=== PATIENT | male | born 1940 | race Caucasian/White ===

== ENCOUNTER 2018-12-24 07:47 | Inpatient (IN) | payer MEDICARE, OTHER ==
[~2018-12-24] VITALS: Ht 182.9 cm; Wt 88.9 kg
[~2018-12-24 07:47] MED LIST: ASA81 MG; [UNRECOGNIZED DRUG - OTHER]
--- OUTSIDE RECORDS SUMMARY | 2018-12-24 07:53 | XMS REPORT | Clinical Summary ---
Author Author KRIS [facility] Address Unknown Phone Unavailable Care Team Providers Care Chiropractic Neurologist Name Role Phone Chirag Gary Beck PCP Allergies Comments Active Allergy Reactions Severity Noted Date Chlorpheniramine-Acetamin Rash Low 08/21/2016 ophen Penicillins Rash Low 05/17/2015 Medications End Date Status Medication Sig Dispensed Refills Start Date Active atorvastatin (LIPITOR) 10 Take 10 mg by 0 MG tablet mouth nightly . Active aspirin 81 MG EC tablet Take 81 mg by 0 mouth daily. Active ranitidine (ZANTAC) 150 Take 150 mg 0 MG tablet by mouth 2 (two) times daily. Active glimepiride (AMARYL) 2 MG Take 2 mg by 0 tablet mouth every morning before breakfast. Active herbal drugs (COLON Take by 0 HERBAL CLEANSER) Cap mouth. Active folic acid (FOLVITE) 400 Take 400 mcg 0 MCG tablet by mouth nightly Takes 2 tabs. Active Missing or Non-Formulary 1 tablet 0 Medication metabolife ultra advanced weight loss formula . Active lisinopril Take 20 mg by 0 (PRINIVIL,ZESTRIL) 20 MG mouth 2 (two) tablet times daily. Active metoprolol (TOPROL-XL) 25 Take 25 mg by 0 MG 24 hr tablet mouth nightly. Active Problems Problem Noted Date Acute medial meniscal tear, left, initial encounter 09/20/2016 Osteoarthrosis, localized, primary, knee, left 09/20/2016 Angina at rest 05/18/2015 Social History Date Tobacco Use Types Packs/Day Years Used Former Smoker Comments: quit 1978 Alcohol Use Drinks/Week oz/Week Comments No Sex Assigned at Date Recorded Not on file Industry Job Start Date Occupation Not on file Not on file Not on file Travel End Travel History Travel Start No recent travel history available. Last Filed Vital Signs Not on file Plan of Treatment Not on file Implants Device Identifier Shelf Expiration Date Model / Serial / Lot Implanted Type Area Manufactur er 11/10/2018 [id number] / / [id number] Patch,Hemashield Knitted Dbl Yaya Graft/Patc Left: Carotid [employer] 0.3x3 - [id number] Artery Implanted: Qty: 1 on 05/19/2015 by Oswaldo Hair MD [id number] / / Supdelilah Right: Hip Implanted: Qty: 1 on 08/23/2016 by Daniel Case MD Results Not on fileafter 12/23/2017 Insurance Payer Benefit Subscriber ID Type Phone Address Plan / Group MEDICARE MEDICARE A xxxxxxxxxx Medicare B CIGNA - MGD CARE CIGNA PPO xxxxxxxxxxx PPO ([place] [address] Advance Directives For more information, please contact: [address] [address] Date Inactivated Comments Code Status Date Activated 07/31/2017 9:51 AM Full Code 07/31/2017 9:00 AM This code status was determined by: Patient 09/20/2016 1:21 PM Full Code 09/20/2016 6:43 AM This code status was determined by: Patient 05/20/2015 1:25 PM Full Code 05/20/2015 10:33 AM This code status was determined by: Patient 05/20/2015 7:47 AM Full Code 05/18/2015 5:50 AM This code status was determined by: Patient
--- OUTSIDE RECORDS SUMMARY | 2018-12-24 07:54 | XMS REPORT ---
Author Author Sandeep Becker [facility] eClinicalWorks Address Unknown Phone Unavailable Care Team Providers Care Shipyard Helper Name Role Phone Sandeep Becker CP Unavailable Allergies, Adverse Reactions, Alerts Substance Reaction Event Type Penicillin Info Not Available Drug Allergy Coricidin D Info Not Available Drug Allergy Problems Problem Type Condition Code Onset Dates Condition Status Assessment GERD K21.9 Active Assessment Hearing loss, Sensorineural - Bilateral H90.3 Active Assessment Dysphagia R13.19 Active Problem Dysphagia R13.19 Active Problem GERD K21.9 Active Problem Hearing loss, Sensorineural - Bilateral H90.3 Active Problem Other otitis externa, bilateral H60.8X3 Active Problem Deviated nasal septum J34.2 Active Problem Chronic laryngitis (LPRD) J37.0 Active Problem Tinnitus, bilateral H93.13 Active Assessment Deviated nasal septum J34.2 Active Assessment Other otitis externa, bilateral H60.8X3 Active Assessment Tinnitus, bilateral H93.13 Active Assessment Chronic laryngitis (LPRD) J37.0 Active Medications Medication Code System Code Instructions Start Date End Date Status Dosage Zantac 150 Maximum Strength [facility] 71516624869 150 MG Orally Twice a day Apr 12, 2015 Active 1 tablet Omeprazole [facility] 21195520933 40 MG Orally Once a day Apr 12, 2015 Active 1 capsule Glimepiride [facility] [address]-42 Active not defined Unknown NDC 0 Active not defined PrednisoLONE Acetate [facility] 79370061396 0.12 % Once a week May 04, 2015 Active 2 drops into each ear Lipitor [facility] 38963058768 10 MG Orally Once a day Active 1 tablet Eliquis [facility] [address]-06 Active not defined Atorvastatin Calcium [facility] [address]-17 Active not defined Metoprolol Succinate ER [facility] [address]-70 Active not defined Aspir-Low [facility] 56287199809 81 MG Orally Once a day Active 1 tablet Results No Known Results Summary Purpose eClinicalWorks Submission
--- OUTSIDE RECORDS SUMMARY | 2018-12-24 07:54 | XMS REPORT ---
Author Author Sandeep Becker [facility] eClinicalWorks Address Unknown Phone Unavailable Care Team Providers Care Supervisor Weaving Name Role Phone Sandeep Becker CP Unavailable Allergies No Known Allergies Problems Problem Type Condition Code Onset Dates Condition Status Problem Hearing loss, Sensorineural - Bilateral H90.3 Active Problem Tinnitus, bilateral H93.13 Active Problem Otalgia, bilateral H92.03 Active Problem Chronic laryngitis (LPRD) J37.0 Active Problem Acute eczematoid otitis externa, bilateral H60.543 Active Problem Dysphagia R13.19 Active Problem GERD K21.9 Active Problem Other otitis externa, bilateral H60.8X3 Active Problem Deviated nasal septum J34.2 Active Medications No Known Medications Results No Known Results Summary Purpose eClinicalWorks Submission
--- OUTSIDE RECORDS SUMMARY | 2018-12-24 07:54 | XMS REPORT ---
Author Author Sandeep Becker [facility] eClinicalWorks Address Unknown Phone Unavailable Care Team Providers Care Machine Cell Tuber Name Role Phone Sandeep Becker CP Unavailable Allergies No Known Allergies Problems Problem Type Condition Code Onset Dates Condition Status Problem Dysphagia R13.19 Active Problem GERD K21.9 Active Problem Hearing loss, Sensorineural - Bilateral H90.3 Active Problem Other otitis externa, bilateral H60.8X3 Active Problem Deviated nasal septum J34.2 Active Problem Chronic laryngitis (LPRD) J37.0 Active Problem Tinnitus, bilateral H93.13 Active Medications No Known Medications Results No Known Results Summary Purpose eClinicalWorks Submission
--- OUTSIDE RECORDS SUMMARY | 2018-12-24 07:54 | XMS REPORT ---
Author Author Sandeep Becker [facility] eClinicalWorks Address Unknown Phone Unavailable Care Team Providers Care Garment Fitter Name Role Phone Sandeep Becker CP Unavailable [...] Active Problem Deviated nasal septum J34.2 Active Assessment Acute eczematoid otitis externa, bilateral H60.543 Active Assessment Deviated nasal septum J34.2 Active Assessment Chronic laryngitis (LPRD) J37.0 Active Assessment GERD K21.9 Active Assessment Other otitis externa, bilateral H60.8X3 Active Assessment Dysphagia R13.19 Active Assessment Tinnitus, bilateral H93.13 Active Assessment Hearing loss, Sensorineural - Bilateral H90.3 Active Medications Medication Code System Code Instructions Start Date End Date Status Dosage Eliquis [facility] [address]-60 Active not defined Glimepiride [facility] [address]-08 Active not defined Metoprolol Succinate ER [facility] [address]-61 Active not defined Unknown NDC 0 Active not defined Atorvastatin Calcium [facility] [address]-00 Active not defined Aspir-Low [facility] 29502251671 81 MG Orally Once a day Active 1 tablet Results No Known Results Summary Purpose eClinicalWorks Submission
--- OUTSIDE RECORDS SUMMARY | 2018-12-24 07:54 | XMS REPORT ---
Author Author Sandeep Becker [facility] eClinicalWorks Address Unknown Phone Unavailable Care Team Providers Care Acute Care Nurse Practitioner Name Role Phone Sandeep Becker CP Unavailable Allergies, Adverse Reactions, Alerts Substance Reaction Event Type Penicillin Info Not Available Drug Allergy Coricidin D Info Not Available Drug Allergy Problems Problem Type Condition Code Onset Dates Condition Status Problem Hearing loss, Sensorineural - Bilateral H90.3 Active Problem Dysphagia R13.19 Active Problem GERD K21.9 Active Problem Acute eczematoid otitis externa, bilateral H60.543 Active Problem Otalgia, bilateral H92.03 Active Problem Xerostomia R68.2 Active Problem Tinnitus, bilateral H93.13 Active Problem Deviated nasal septum J34.2 Active Problem Chronic laryngitis (LPRD) J37.0 Active Problem Other otitis externa, bilateral H60.8X3 Active Assessment Other otitis externa, bilateral H60.8X3 Active Assessment Xerostomia R68.2 Active Assessment Acute eczematoid otitis externa, bilateral H60.543 Active Assessment GERD K21.9 Active Assessment Otalgia, bilateral H92.03 Active Assessment Deviated nasal septum J34.2 Active Assessment Hearing loss, Sensorineural - Bilateral H90.3 Active Assessment Chronic laryngitis (LPRD) J37.0 Active Medications Medication Code System Code Instructions Start Date End Date Status Dosage Unknown ND 0 Active not defined Glimepiride [facility] [address]-14 Active not defined Zantac 150 Maximum Strength [facility] 24932769928 150 MG Orally BID October 23, 2018 Active 1 tablet Metoprolol Succinate ER [facility] [address]-34 Active not defined Atorvastatin Calcium [facility] [address]-69 Active not defined Eliquis [facility] [address]-31 Active not defined Aspir-Low [facility] 38073326244 81 MG Orally Once a day Active 1 tablet Results No Known Results Summary Purpose eClinicalWorks Submission
[2018-12-24] MEDS ORDERED: DILTIAZEM HCL 5 MG/ML 5 ML VIAL IV NR (08:37)
[2018-12-24] MEDS ORDERED: ATORVASTATIN CA10 MG PO (08:42)
[2018-12-24] MEDS ORDERED: ELIQUIS PO (08:42)
[2018-12-24] MEDS ORDERED: GLIMEPIRIDE2 MG PO (08:42)
[2018-12-24] MEDS ORDERED: FUROSEMIDE20 MG PO (08:42)
[2018-12-24] MEDS ORDERED: METOPROLOL SUCC50 MG PO (08:42)
[2018-12-24] MEDS ORDERED: SODIUM CHLORIDE 0.9% 500ML 500 ML IV ONE (08:45)
[2018-12-24 08:56] LABS: BASOPHILS % 0.2 % (0.0-1.0); EOSINOPHILS % 0.1 % (0.0-6.0); HEMATOCRIT 46.8 % (38.2-49.6); HEMOGLOBIN 16.4 g/dL (14.0-18.0); LYMPHOCYTES # (AUTO) 1.1 (1.0-3.2); LYMPHOCYTES % 8.4 % (18.0-39.1); MEAN CORPUSCULAR HEMOGLOBIN 31.4 pg (28-32); MEAN CORPUSCULAR VOLUME 89.5 fL (81-99); MONOCYTES # (AUTO) 0.5 (0.2-0.8); MONOCYTES % 4.2 % (4.4-11.3); NEUTROPHILS % 84.7 % (38.7-80.0); PLATELET COUNT 196 x10e3/uL (140-360); RED BLOOD COUNT 5.23 x10e6/uL (4.3-5.7); RED CELL DISTRIBUTION WIDTH 15.9 % (11.7-14.4)
[2018-12-24 09:07] LABS: ALANINE AMINOTRANSFERASE 137 IU/L (0-55); ALBUMIN 3.3 g/dL (3.5-5.0); ALKALINE PHOSPHATASE 67 IU/L (40-150); ANION GAP 13.6 mmol/L (8-16); BLOOD UREA NITROGEN 30 mg/dL (7-26); BUN/CREATININE RATIO 24 (6-25); CALCIUM 9.3 mg/dL (8.4-10.2); CARBON DIOXIDE 26 mmol/L (22-29); CHLORIDE 100 mmol/L (98-107); CREATINE KINASE 28 IU/L (30-200); CREATININE, SERUM 1.25 mg/dL (0.72-1.25); EST GLOMERULAR FILTRATION RATE 56 ML/MIN (60-); GLUCOSE 313 mg/dL (74-118); MAGNESIUM 2.2 MG/DL (1.3-2.1); POTASSIUM 4.6 mmol/L (3.5-5.1); SODIUM 135 mmol/L (136-145)
[2018-12-24 09:08] LABS: INR 1.04; PARTIAL THROMBOPLASTIN TIME 26.7 seconds (23.8-35.5); PROTHROMBIN TIME 14.1 seconds (11.9-14.5)
[2018-12-24] MEDS: DILTIAZEM HCL ER 120 MG CAP PO SCH (09:30)
--- NOTE | 2018-12-24 09:37 | Diagnostic Imaging Report ---
EXAMINATION: PA and lateral views of the chest. COMPARISON: None CLINICAL HISTORY: Cough, weakness DISCUSSION: Lines/tubes: None. Lungs: The lungs are well inflated and clear. There is no evidence of pneumonia or pulmonary edema. Pleura: There is no pleural effusion or pneumothorax. Heart and mediastinum: Tortuosity and atherosclerotic calcification of the thoracic aorta. Normal heart size without overt pulmonary edema. Bones and soft tissues: No acute bony abnormalities. Ovoid lucency projecting over the right anterior first rib likely reflects summation of vascular and osseous structures. Degenerative changes in the thoracic spine IMPRESSION: No acute cardiopulmonary abnormalities. Signed by: Dr. Kiran Duran M.D. on 12/24/2018 9:34 AM
[2018-12-24 09:38] LABS: INFLUENZAE A&B ANTIGEN (RAPID) NEGATIVE (NEGATIVE)
[2018-12-24] MEDS ORDERED: VANCOMYCIN 1GM/NS 250 ML 250 ML IV ONE (09:45)
[2018-12-24] MEDS ORDERED: SODIUM CHLORIDE 0.9% 1000ML 1,000 ML IV ONE (09:45)
[2018-12-24] MEDS: CEFEPIME 2 GM/NS 0.9% 100 ML 100 ML IV SCH ×2 (10:15→21:45)
[2018-12-24] MEDS ORDERED: DEXTROSE 50% SYRINGE 50 ML IV PRN (10:15)
[2018-12-24] MEDS ORDERED: ONDANSETRON HCL INJ 2MG/ML 2ML 2 MG/ML VIAL IV PRN (10:15)
--- OUTSIDE RECORDS SUMMARY | 2018-12-24 10:17 | XMS REPORT | Clinical Summary ---
Author Author KRIS [facility] Address Unknown Phone Unavailable Care Team Providers Care Manager Recovery Name Role Phone Chirag Gary Beck PCP [...] Lot Implanted Type Area Manufactur er 11/10/2018 [id number] / / [id number] Patch,Hemashield Knitted Dbl Yaya Graft/Patc Left: Carotid [employer] 0.3x3 - [id number] Artery Implanted: Qty: 1 on 05/19/2015 by Oswaldo Hair MD [id number] / / Supdelilah Right: Hip Implanted: Qty: 1 on 08/23/2016 by Daniel Case MD Results Not on fileafter 12/23/2017 Insurance Payer Benefit Subscriber ID Type Phone Address Plan / Group MEDICARE MEDICARE A xxxxxxxxxx Medicare B CIGNA - MGD CARE CIGNA PPO xxxxxxxxxxx PPO ([place] [address] Advance Directives For more information, please contact: [address] [address] Date Inactivated Comments Code Status [...]
--- OUTSIDE RECORDS SUMMARY | 2018-12-24 10:17 | XMS REPORT ---
Author Author [facility] Address Unknown Phone Unavailable Care Team Providers Care Dosier Operator Name Role Phone Melba MORAN Unavailable Unavailable Problems This patient has no known problems. Allergies, Adverse Reactions, Alerts This patient has no known allergies or adverse reactions. Medications This patient has no known medications. Results Test Description Test Time Test Comments Text Results Atomic Results Result Comments CHEST 2 VIEWS 2018-12-24 09:31:00 [facility] [address] [place] [address] Patient Name: CLEMENTINA DANIELLE MR #: [id number] : 1940 Age/Sex: 78/M Req #: [id number] Adm Physician: Ordered by: ELIZABETH MORAN MD Report #: [id number] Location: ER Room/Bed: Procedure: [id number] DX/CHEST 2 VIEWS Exam Date: 12/24/18 Exam Time: 916 REPORT STATUS: Signed EXAMINATION: PA and lateral views of the chest. COMPARISON: None CLINICAL HISTORY: Cough, weakness DISCUSSION: Lines/tubes: None. Lungs: The lungs are well inflated and clear. There is no evidence of pneumonia or pulmonary edema. Pleura: There is no pleural effusion or pneumothorax. Heart and mediastinum: Tortuosity and atherosclerotic calcification of the thoracic aorta. Normal heart size without overt pulmonary edema. Bones and soft tissues: No acute bony abnormalities. Ovoid lucency projecting over the right anterior first rib likely reflects summation of vascular and osseous structures. Degenerative changes in the thoracic spine IMPRESSION: No acute cardiopulmonary abnormalities. Signed by: Dr. Debra Washington M.D. on 12/24/2018 9:34 AM Dictated By: DEBRA WASHINGTON MD 3 Transcribed By: KADY on 12/24/18933 COPY TO: ELIZABETH MORAN MD
--- NOTE | 2018-12-24 10:20 | Diagnostic Imaging Report ---
History:Vertigo, dizziness Comparison studies:None Technique: Axial images were obtained from the skull base to the vertex. Coronal and sagittal images reconstructed from the axial data. Intravenous contrast: None Dose modulation, iterative reconstruction, and/or weight based adjustment of the mA/kV was utilized to reduce the radiation dose to as low as reasonably achievable. Findings: Scalp/skull: No abnormalities. Extra-axial spaces: No masses. No fluid collections. Brain sulci: Mildly prominent. Ventricles: Mild compensatory dilatation. No hydrocephalus. Parenchyma: Scattered small hypodensities in the supratentorial white matter are small vessel ischemic changes. No masses, hemorrhage, acute or chronic cortical vascular insults. Sellar/suprasellar region: No abnormalities. Craniocervical junction: Patent foramen magnum. No Chiari one malformation. Incidental findings: Atherosclerotic calcifications in the carotid siphons . Bilateral cataract surgery changes. Air-fluid level at the left maxillary sinus. Impression: No acute intracranial abnormalities. Summary changes maxillary sinus, probably acute. Chronic findings: 1. Mild generalized volume loss. 2. Mild supratentorial white matter small vessel ischemic changes. Signed by: DR Caesar Boss M.D. on 12/24/2018 10:17 AM
[2018-12-24] MEDS: INSULIN LISPRO 100 UNIT/1 ML 3ML VIAL SQ SCH ×3 (12:05→19:52)
[2018-12-24 12:07] LABS: CLARITY,URINE SL CLOUDY (CLEAR); COLOR,URINE YELLOW (YELLOW); LEUKOCYTE ESTERASE ,URINE NEGATIVE (NEGATIVE); NITRITE,URINE NEGATIVE (NEGATIVE); PROTEIN,URINE DIPSTICK NEGATIVE (NEGATIVE)
[2018-12-24 12:08] LABS: BILIRUBIN,URINE NEGATIVE (NEGATIVE); KETONES,URINE NEGATIVE (NEGATIVE); URINE UROBILINOGEN 0.2 mg/dL (0.2 - 1)
[2018-12-24 12:32] LABS: EPITHELIAL CELLS,URINE RARE /LPF
[2018-12-24] MEDS: FAMOTIDINE 20 MG/2 ML VIAL IV SCH ×2 (13:38→20:16)
[2018-12-24] MEDS: AZITHROMYCIN 500MG/NS 250 ML 250 ML IV SCH (13:38)
[2018-12-24 13:54] VITALS: BP 120/73
[2018-12-24 17:25] LABS: CREATINE KINASE MB 0.7 ng/mL (0-5.0)
--- NOTE | 2018-12-24 18:13 | NUR ---
RECEIVED PATIENT FROM ER. PATIENT A/O X3, EVEN RESPIRATIONS UNLABORED ON 2LNC. BOWEL SOUNDS ACTIVE, SKIN INTACT, NO EDEMA. TELE #10 AFIB WITH PVC'S AT 92. PATIENT AMBULATORY. VITAL SIGNS STABLE. BED LOW, WHEELS LOCKED, SIDE RAILS X2. CALL LIGHT IN REACH WILL CONTINUE TO MONITOR PATIENT.
[2018-12-24 18:24] VITALS: BP 128/98
--- NOTE | 2018-12-24 19:00 | NUR ---
patient received awake, alert, lying quietly in bed. no c/o pain noted. ivf continue to infuse without difficulty. telemetry #10 noted and shows a-fib with pvc's at this time. pm assessment complete. urinal placed at the bedside. patient instructed to call for assistance when needed.
[2018-12-24 19:30] VITALS: BP 121/67
[2018-12-24 20:00] VITALS: BP 121/67
[2018-12-24] MEDS ORDERED: LEVALBUTEROL HCL SOLN NEBU 0.63 MG/3 ML NEB INH PRN (20:15)
[2018-12-24] MEDS: ATORVASTATIN 10 MG TAB PO SCH (20:48)
[2018-12-24] MEDS: APIXABAN 5 MG TABLET PO SCH (20:48)
[2018-12-24] MEDS: METHYLPREDNISOLONE SOD SUCC 40 MG/ML VIAL 1ML IV SCH (20:53)
[2018-12-25] VITALS (8 sets, daily range): BP systolic 106–155; BP diastolic 62–81
--- NOTE | 2018-12-25 00:20 | NUR ---
3rd set of cardiac markers drawn at this time and sent to lab.
[2018-12-25 01:17] LABS: CREATINE KINASE MB 0.8 ng/mL (0-5.0)
--- NOTE | 2018-12-25 03:21 | History and Physical ---
CHIEF COMPLAINT: The patient comes in with dizziness and weakness. HISTORY OF PRESENTING ILLNESS: Mr. Jovon Sauceda is with a history of atrial fibrillation, history of diabetes and hypertension, was in usual state of health until the patient started to have upper respiratory symptoms, was treated at Dr. Beard's office with IM antibiotics and the patient was feeling bit better, but the patient this morning woke up and had confusion and episode of dizziness, came in when the patient fell forward and had a near syncopal episode. The patient came to the emergency room, was found to have atrial fibrillation with rapid ventricular response and the patient was admitted. After diltiazem was given, the patient's RVR was corrected. PAST MEDICAL HISTORY: History of hyperlipidemia, history of atrial fibrillation, history of diabetes mellitus, history of hypertension. PAST SURGICAL HISTORY: Includes history of appendectomy, history of CEA, history of feet surgery, and history of arthroscopic knee surgeries. MEDICATIONS: Include atorvastatin 10 mg, metoprolol 50 mg ER, Eliquis 5 mg twice a day, and glimepiride 2 mg daily. ALLERGIES: ALLERGIC TO PENICILLINS, CHLORPHENIRAMINE, AND DEXTROMETHORPHAN. SOCIAL HISTORY: No EtOH. No IV drug abuse. No history of alcohol either. FAMILY HISTORY: History of diabetes and hypertension in first-degree family members. PHYSICAL EXAMINATION: VITAL SIGNS: Temperature is 96.3, pulse of 80, respirations of 20, blood pressure is 128/98, pulse oximetry of 99%. HEENT: Normocephalic, atraumatic. Pupils are reactive to light and accommodation. CVS: S1 and S2 irregular, rate is at 80s. Neck: No JVD present. ABDOMEN: Nontender, nondistended. LUNGS: Breath sounds are normal. BACK: Normal inspection. SKIN: Warm. EXTREMITIES: Bilateral 1+ pitting edema. NEUROLOGIC: Alert and oriented x3. Speech is normal. Cranial nerves normal. No cerebellar findings. No motor deficits. No sensory deficits. LABORATORY VALUES: White count is 12.98, neutrophil count is 84.7. Chemistry show a sodium of 135, BUN of 30, creatinine of 1.25, lactic acid was 24.9, total bilirubin was 1.6. Coags, INR is 1.04. IMAGING STUDIES: Brain CT showed mild generalized volume loss and mild supratentorial white matter small ischemic disease, and chest x-ray shows no acute cardiopulmonary disorders. MICROBIOLOGY: Blood cultures and urine cultures are pending. SEROLOGY: Influenza was negative. ASSESSMENT: 1. Atrial fibrillation with rapid ventricular response, converted back to regular rate by Cardizem. 2. Elevated lactic acid. The patient is currently on azithromycin and cefepime. We will continue with the same for possible infectious etiology. 3. Atrial fibrillation. Continue with his Eliquis at this time and metoprolol ER for rate control, also give him some Xopenex treatment in lieu of his atrial fibrillation. IV fluids has been started. Lactic acid will be repeated. CBC will be repeated. Further recommendation per clinical course. We will continue to monitor the patient and possible discharge in 1 to 2 days. MD CEHRYLE DominguezJ/MODL /[id number]
--- NOTE | 2018-12-25 04:00 | NUR ---
patient appears to be resting quietly. no c/o pain noted at this time.
[2018-12-25 06:10] LABS: BASOPHILS % 0.3 % (0.0-1.0); HEMATOCRIT 40.7 % (38.2-49.6); HEMOGLOBIN 13.8 g/dL (14.0-18.0); LYMPHOCYTES # (AUTO) 0.8 (1.0-3.2); LYMPHOCYTES % 5.9 % (18.0-39.1); MEAN CORPUSCULAR HEMOGLOBIN 31.2 pg (28-32); MEAN CORPUSCULAR HGB CONC 33.9 g/dL (31-35); MEAN CORPUSCULAR VOLUME 91.9 fL (81-99); MONOCYTES # (AUTO) 0.1 (0.2-0.8); NEUTROPHILS # (AUTO) 11.9 (2.1-6.9); NEUTROPHILS % 90.1 % (38.7-80.0); PLATELET COUNT 153 x10e3/uL (140-360); RED BLOOD COUNT 4.43 x10e6/uL (4.3-5.7); RED CELL DISTRIBUTION WIDTH 15.8 % (11.7-14.4)
[2018-12-25 06:37] LABS: ALANINE AMINOTRANSFERASE 112 IU/L (0-55); ALBUMIN 2.7 g/dL (3.5-5.0); ALKALINE PHOSPHATASE 52 IU/L (40-150); ANION GAP 11.7 mmol/L (8-16); BLOOD UREA NITROGEN 29 mg/dL (7-26); BUN/CREATININE RATIO 31 (6-25); CALCIUM 8.4 mg/dL (8.4-10.2); CARBON DIOXIDE 25 mmol/L (22-29); CHLORIDE 103 mmol/L (98-107); CHOL/HDL RATIO 3.2 (3.9-4.7); CHOLESTEROL 167 MD/DL (0-199); CREATININE, SERUM 0.95 mg/dL (0.72-1.25); EST GLOMERULAR FILTRATION RATE > 60 ML/MIN (60-); GLUCOSE 256 mg/dL (74-118); HDL CHOLESTEROL 52 MG/DL (40-60); LDL CHOLESTEROL 101 MG/DL (60-130); POTASSIUM 4.7 mmol/L (3.5-5.1); SODIUM 135 mmol/L (136-145); TRIGLYCERIDES 68 MG/DL (0-149)
[2018-12-25 06:43] LABS: CREATINE KINASE MB 0.7 ng/mL (0-5.0)
[2018-12-25] MEDS: LEVALBUTEROL HCL SOLN NEBU 0.63 MG/3 ML NEB INH SCH ×3 (07:00→20:15)
--- NOTE | 2018-12-25 07:52 | Progress Note ---
DATE: SUBJECTIVE: The patient is a 78-year-old male admitted yesterday for AFib with rapid ventricular response, history of syncope, and the patient has a history of atrial fibrillation and has been seen by nuclear equipment sales engineer at [facility]. The patient is currently complaining of some shortness of breath and some wheezing, which he perceives. The patient has been started on Solu-Medrol of the same. Medications have been restarted including glimepiride. The patient is on low dose sliding scale and also on cefepime and azithromycin for the bronchitis. The patient is also on Eliquis for anticoagulation. OBJECTIVE: VITAL SIGNS: Currently, temperature is 96.7, pulse of 69, respirations of 18, blood pressure is 117/76, O2 of 2 L 98% of oxygen. HEENT: Normocephalic, atraumatic. Pupils are reactive to light and accommodation. CVS: S1, S2. Regular. ABDOMEN: Nontender and nondistended. EXTREMITIES: No clubbing, no cyanosis, no edema. The patient's microbiology, urine cultures, blood cultures are pending. LABORATORY VALUES: The patient's white count is 12.98 pending today. Neutrophil count is 84.7. Chemistries, glucose 283. Lactic acid was 25.9 is still pending today. ASSESSMENT: 1. Atrial fibrillation with rapid ventricular response, corrected by diltiazem. We will continue with metoprolol. Continue with anticoagulation. 2. Bronchitis, failed outpatient treatment. The patient is on azithromycin and also on cefepime for pro-bronchitis. The patient will be also started on Xopenex for his wheezing as needed. The patient to get Solu-Medrol continuous twice a day and we will taper off the Solu-Medrol starting tomorrow. The patient will get IV fluids at a very low rate secondary to his heart conditions. Further recommendation per clinical course. The patient is progressing well. DISPOSITION: Discharge in 1 to 2 days. MD LYSSA Dominguez/ABHAYL /[id number]
[2018-12-25] MEDS: INSULIN LISPRO 100 UNIT/1 ML 3ML VIAL SQ SCH ×4 (08:40→21:35)
[2018-12-25] MEDS ORDERED: NON-FORMULARY MEDICATION ([Eliquis] 5 MG) PO SCH (09:00)
[2018-12-25] MEDS ORDERED: METOPROLOL SUCCINATE 50 MG TAB XL PO SCH (09:00)
[2018-12-25] MEDS ORDERED: METOPROLOL SUCCINATE 25 MG TAB XL PO SCH (09:00)
[2018-12-25] MEDS ORDERED: GLIMEPIRIDE 2 MG TAB PO SCH (09:00)
[2018-12-25] MEDS ORDERED: LASIX20 MG PO (09:43)
[2018-12-25] MEDS: FAMOTIDINE 20 MG/2 ML VIAL IV SCH ×2 (09:45→21:35)
[2018-12-25] MEDS: APIXABAN 5 MG TABLET PO SCH ×2 (09:45→21:35)
[2018-12-25] MEDS: METHYLPREDNISOLONE SOD SUCC 40 MG/ML VIAL 1ML IV SCH (09:45)
[2018-12-25] MEDS: CEFEPIME 2 GM/NS 0.9% 100 ML 100 ML IV SCH ×2 (09:45→21:35)
--- NOTE | 2018-12-25 10:12 | NUR ---
WITH STANDBY ASSIST, PT OOB TO BEDSIDE CHAIR, CALL LIGHT WITHIN REACH
[2018-12-25] MEDS: AZITHROMYCIN 500MG/NS 250 ML 250 ML IV SCH (10:30)
[2018-12-25 12:43] LABS: LYMPHOCYTES % (MANUAL) 4 % (19-48); MONOCYTES % (MANUAL) 4 % (3.4-9.0); MYELOCYTES % (MANUAL) 1 % (0-0); NEUTROPHILS % (MANUAL) 85 % (40-74)
[2018-12-25 12:44] LABS: PLATELET ESTIMATE ADEQUATE; PLATELET MORPHOLOGY COMMENT NORMAL; RBC MORPHOLOGY COMMENT NORMAL
--- NOTE | 2018-12-25 12:46 | NUR ---
TELEPHONED MD SANTO TO MAKE AWARE OF ELEVATED BS AT 440, ORDERS NOTED NOTED
[2018-12-25] MEDS ORDERED: INSULIN LISPRO 100 UNIT/1 ML 3ML VIAL SQ ONE ×2 (13:00→18:15)
--- NOTE | 2018-12-25 14:00 | NUR ---
WITH STANDBY ASSIST, PT AMBULATED TO BR TO BRUSH TEETH, TOLERATED WELL,
--- NOTE | 2018-12-25 14:30 | NUR ---
SITTING IN BS CHAIR, CALL LIGHT WITHIN REACH
--- NOTE | 2018-12-25 17:30 | NUR ---
TELEPHONED MD SANTO TO NOTIFY THAT PATIENTS GLUCOSE LEVEL IS AT 408, AND THAT 14U HUMALOG GIVEN PER SLIDING SCALE, AWAITING CALL BACK
--- NOTE | 2018-12-25 18:00 | NUR ---
SPOKE WITH MD SANTO, ORDER NOTED
--- NOTE | 2018-12-25 18:14 | NUR ---
PT SITTING IN BED, ENCOURAGED TO AMBULATE, STATES "WILL WITH ", CALL LIGHT WITHIN REACH
--- NOTE | 2018-12-25 18:31 | NUR ---
AMBULATING IN HALLWAY, STEADY GAIT, FAMILY AT SIDE Addendum: 12/25/18 at 1913 by Vivi Summers RN O2 SAT 93% AT THIS TIME WHILE WALKING
--- NOTE | 2018-12-25 19:05 | NUR ---
Received patient in bedside report. Patient A&Ox3. Lungs clear, bowel sounds active, skin intact, no edema noted. No S&S of distress noted. O2 running at 2L. R AC 20g IV asymptomatic, intact, and patent. No pain reported. Bed locked in lowest position, side rails upx2, call light in reach.
--- NOTE | 2018-12-25 19:10 | NUR ---
Patient ambulating in hallway with family member. HR 126, O2 reading at 82%, but not consistently being read by monitor. Patient's hands noted to be quite cold when put monitor on. Steady gait noted.
[2018-12-25] MEDS ORDERED: METHYLPREDNISOLONE SOD SUCC 40 MG/ML VIAL 1ML IV SCH (21:00)
--- NOTE | 2018-12-25 21:00 | NUR ---
Patient ambulated. Tele monitor reported that O2 sats did not read the entire time he walked, though monitor was on appropriately. Reminded patient to call for assistance when he is ready to walk so we can make sure it is reading correctly. Steady gait noted on ambulation.
[2018-12-25] MEDS: METOPROLOL SUCCINATE 25 MG TAB XL PO SCH (21:23)
[2018-12-25] MEDS: ATORVASTATIN 10 MG TAB PO SCH (21:35)
[2018-12-26] VITALS (7 sets, daily range): BP systolic 111–125; BP diastolic 57–74
[2018-12-26] MEDS: LEVALBUTEROL HCL SOLN NEBU 0.63 MG/3 ML NEB INH SCH ×4 (01:00→20:00)
--- NOTE | 2018-12-26 06:00 | NUR ---
Patient ambulating at this time. SpO2 noted to be 87%. Gait steady.
[2018-12-26 06:21] LABS: BASOPHILS # (AUTO) 0.1 (0.0-0.1); BASOPHILS % 0.3 % (0.0-1.0); HEMATOCRIT 44.3 % (38.2-49.6); HEMOGLOBIN 14.9 g/dL (14.0-18.0); LYMPHOCYTES # (AUTO) 1.1 (1.0-3.2); LYMPHOCYTES % 5.4 % (18.0-39.1); MEAN CORPUSCULAR HEMOGLOBIN 30.8 pg (28-32); MEAN CORPUSCULAR HGB CONC 33.6 g/dL (31-35); MEAN CORPUSCULAR VOLUME 91.5 fL (81-99); MONOCYTES # (AUTO) 0.8 (0.2-0.8); MONOCYTES % 4.2 % (4.4-11.3); NEUTROPHILS # (AUTO) 17.3 (2.1-6.9); NEUTROPHILS % 87.7 % (38.7-80.0); PLATELET COUNT 206 x10e3/uL (140-360); RED BLOOD COUNT 4.84 x10e6/uL (4.3-5.7); RED CELL DISTRIBUTION WIDTH 15.9 % (11.7-14.4)
[2018-12-26 06:55] LABS: ANION GAP 13.2 mmol/L (8-16); BLOOD UREA NITROGEN 28 mg/dL (7-26); BUN/CREATININE RATIO 27 (6-25); CALCIUM 9.2 mg/dL (8.4-10.2); CARBON DIOXIDE 23 mmol/L (22-29); CHLORIDE 103 mmol/L (98-107); CREATININE, SERUM 1.03 mg/dL (0.72-1.25); EST GLOMERULAR FILTRATION RATE > 60 ML/MIN (60-); GLUCOSE 230 mg/dL (74-118); POTASSIUM 5.2 mmol/L (3.5-5.1); SODIUM 134 mmol/L (136-145)
[2018-12-26] MEDS: DILTIAZEM HCL ER 120 MG CAP PO SCH (08:17)
[2018-12-26] MEDS: GLIMEPIRIDE 2 MG TAB PO SCH (08:17)
[2018-12-26] MEDS: INSULIN LISPRO 100 UNIT/1 ML 3ML VIAL SQ SCH ×4 (08:17→21:19)
[2018-12-26] MEDS: APIXABAN 5 MG TABLET PO SCH ×2 (08:17→21:20)
[2018-12-26] MEDS: METOPROLOL SUCCINATE 25 MG TAB XL PO SCH ×2 (08:17→21:20)
[2018-12-26] MEDS: FAMOTIDINE 20 MG/2 ML VIAL IV SCH ×2 (08:56→21:20)
[2018-12-26] MEDS: AZITHROMYCIN 500MG/NS 250 ML 250 ML IV SCH (08:56)
[2018-12-26] MEDS: CEFEPIME 2 GM/NS 0.9% 100 ML 100 ML IV SCH ×2 (10:18→21:20)
--- NOTE | 2018-12-26 10:33 | Progress Note ---
DATE: SUBJECTIVE: The patient is here for acute bronchitis, failed outpatient treatment and atrial fibrillation with RVR. The patient's atrial fibrillation currently is asymptomatic. Shortness of breath continues. The patient has been walking, but is getting better. The patient has no chest pain, no shortness of breath, no palpitations, no nausea, no vomiting, or diarrhea. MEDICINES: He is on apixaban, atorvastatin, azithromycin, cefepime, diltiazem, glimepiride, metoprolol, and Zofran as needed. OBJECTIVE: VITAL SIGNS: Temperature is 96.9, pulse 56, respirations of 18, blood pressure is 111/71, pulse oximeter of 96%. HEENT: Normocephalic, atraumatic. Pupils are reactive to light and accommodation. CVS: Irregularly irregular. ABDOMEN: Nontender, nondistended. LUNGS: Positive for rhonchi bilaterally. Scattered inspiratory wheezes. EXTREMITIES: No clubbing, no cyanosis, no edema. LABORATORY VALUES: Pending today. Yesterday's white count 13.4 reactive to probable steroids. Chemistries 135 sodium, potassium 4.7, glucose is 256. ALT and AST 112 and 131, cholesterol HDL was 52 and LDL of 101. ASSESSMENT: 1. Acute bronchitis, failed outpatient treatment. Continue with steroids, although it has been decreased. Xopenex treatment. The patient is on antibiotics, continue the same. 2. Atrial fibrillation with RVR, resolved. Continue with apixaban and calcium channel chema and beta blockade. 3. DVT prophylaxis with apixaban. GI prophylaxis, continue to monitor the patient. Continue on CV medication and antidiabetic medications. Solu-Medrol has been decreased for blood sugars running high. Wilfredo Carvajal MD ASJ/MODL /[id number]
[2018-12-26 11:14] LABS: ANISOCYTOSIS SLIGHT; LYMPHOCYTES % (MANUAL) 8 % (19-48); METAMYELOCYTES % (MANUAL) 2 % (0-0); MONOCYTES % (MANUAL) 3 % (3.4-9.0); MYELOCYTES % (MANUAL) 1 % (0-0); NEUTROPHILS % (MANUAL) 86 % (40-74); PLATELET ESTIMATE ADEQUATE; PLATELET MORPHOLOGY COMMENT NORMAL; RBC MORPHOLOGY COMMENT NORMAL
--- NOTE | 2018-12-26 17:07 | NUR ---
Nutrition Screen Note RD Recommendation for Physician: -Continue current diet as ordered Plan of Care: RD following, monitoring for tolerance and adequacy Nutrition reason for involvement: Nutrition Risk Trigger MST Primary Diagnose(s): acute bronchitis with RVR PMH: HLD, Afib, DM, HTN Ht: 72in Wt: 196lb BMI: 26.6kg/m2 IBW: 178lb RD Assessment: (12/26) Chart reviewed. Labs and meds reviewed. 78yo M, who was admitted for dizziness and weakness. Visited pt in the room. Pt reported good appetite without GI complains. Pt denied any chewing or swallowing difficulty. Weight has been stable, per pt. Current diet is adequate and appropriate. Will continue to monitor and follow. Current Diet: ADA 1800 Malnutrition Evaluation (12/26) The patient does not meet criteria for a specified degree of malnutrition at this time. Will re-evaluate at follow-up as appropriate. Diet Education Needs Assessment: Diet education not indicated. Nutrition Care Level: low Signed: Lisa Thakkar, MS, RD, LD
--- NOTE | 2018-12-26 19:28 | NUR ---
Received patient in bedside report. A&Ox3. No pain reported. R wrist 20g IV asymptomatic, intact, and patent. No S&S of distress noted at this time. Bed locked in lowest position, side rails upx2, call light in reach.
[2018-12-26] MEDS: ATORVASTATIN 10 MG TAB PO SCH (21:20)
[2018-12-27] VITALS: BP 115/69
[2018-12-27] MEDS: LEVALBUTEROL HCL SOLN NEBU 0.63 MG/3 ML NEB INH SCH ×2 (01:00→07:22)
[2018-12-27 04:00] VITALS: BP 121/80
--- NOTE | 2018-12-27 07:03 | Progress Note ---
DATE: SUBJECTIVE: The patient is here for acute exacerbation of bronchitis, failed outpatient treatment and also atrial fibrillation with RVR. Currently asymptomatic. No complaints. Did walk yesterday, did have some shortness of breath, but more secondary deconditioning. OBJECTIVE: VITAL SIGNS: Temperature is 98.3, pulse of 57, respirations of 18, blood pressure is 115/59, pulse oximetry of 97%. HEENT: Normocephalic, atraumatic. Pupils are reactive to light and accommodation. CVS: S1, S2. Regular. ABDOMEN: Nontender, nondistended. LUNGS: Clear to auscultation bilaterally. EXTREMITIES: No clubbing, no cyanosis, no edema. LABORATORY VALUES: [place] [address] as expected yesterday. Chemistries, sodium 134, BUN of 28 and creatinine of 1.3. The patient was on steroids. Coags normal. ASSESSMENT: 1. Failed outpatient treatment for acute bronchitis. Continue monitoring and we will go ahead and discharge the patient today to be followed up with Dr. Beard. 2. The patient also will continue being monitored as an outpatient with Dr. Beard. For atrial fibrillation with RVR, continue with medication. Further recommendation per clinical course. MD CHERYLE DominguezJ/MODL /[id number]
--- NOTE | 2018-12-27 07:19 | NUR ---
Rcvd patient in report this am. Patient is asleep in bed at this time. No s/s of distress noted
[2018-12-27] MEDS: AZITHROMYCIN 500MG/NS 250 ML 250 ML IV SCH (07:36)
--- NOTE | 2018-12-27 08:00 | NUR ---
Patient is AAOx3. Lung carr clear to auscultation. Bowel sounds present x4. No edema noted. No shortness of breath noted. Right wrist IV in place. Patient ambulates on his own with no shortness of breath
--- NOTE | 2018-12-27 08:03 | NUR ---
Removed IV from right wrist. Dressing applied. Iv site noted to be swelling. Cool pack applied
[2018-12-27] MEDS: GLIMEPIRIDE 2 MG TAB PO SCH (08:09)
[2018-12-27] MEDS: INSULIN LISPRO 100 UNIT/1 ML 3ML VIAL SQ SCH (08:10)
[2018-12-27] MEDS: METOPROLOL SUCCINATE 25 MG TAB XL PO SCH (08:14)
[2018-12-27] MEDS: APIXABAN 5 MG TABLET PO SCH (08:14)
[2018-12-27] MEDS: DILTIAZEM HCL ER 120 MG CAP PO SCH (08:14)
[2018-12-27 08:20] VITALS: BP 126/67
--- NOTE | 2018-12-27 08:30 | NUR ---
Patient discharged from facility to home. Patient assisted out via staff in wheelchair. Reviewed all discharge paperwork, follow up appts and RX's given.
== END 2018-12-27 08:30 | disposition home or self-care (01) | DRG 310 ==
LOC: ER 07:47 → ERHOLD 10:14 → MED/SURG 18:19 → OBSVTOIN 12-25 10:34
PROVIDERS: ADMIT Family Medicine; ATTEND Family Medicine
DX: I48.91 Unspecified atrial fibrillation (principal); E78.5 Hyperlipidemia, unspecified; E11.9 Type 2 diabetes mellitus without complications; I10 Essential (primary) hypertension
CPT/HCPCS: 36415; 70450; 71046; 80048; 80053; 80061; 81001; 82550; 82553; 82948; 83605; 83735; 84484; 85025; 85610; 85730; 87040; 87086; 87400; 93005; 94640; 99285; G0378; J0456; J2920; J3370; J7030; J7040

== ENCOUNTER 2019-01-15 07:50 | Inpatient (IN) | payer MEDICARE, OTHER ==
[~2019-01-15] VITALS: Ht 182.9 cm; Wt 85.3 kg
[~2019-01-15 07:50] MED LIST changes: +ATORVASTATIN CA10 MG PO; +ELIQUIS PO; +FUROSEMIDE20 MG PO; +GLIMEPIRIDE2 MG PO; +LASIX20 MG PO; +METOPROLOL SUCC50 MG PO
--- OUTSIDE RECORDS SUMMARY | 2019-01-15 07:56 | XMS REPORT | Clinical Summary ---
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 Name Role Phone Chirag Gary Beck PCP [...] Lot Implanted Type Area Manufactur er 11/10/2018 [id number] / / [id number] Patch,Hemashield Knitted Dbl Yaya Graft/Patc Left: Carotid [employer] 0.3x3 - [id number] Artery Implanted: Qty: 1 on 05/19/2015 by Oswaldo Hair MD [id number] / / Supdelilah Right: Hip Implanted: Qty: 1 on 08/23/2016 by Daniel Case MD Results Not on fileafter 01/14/2018 Insurance Payer Benefit Subscriber ID Type Phone Address Plan / Group MEDICARE MEDICARE A xxxxxxxxxx Medicare B CIGNA - MGD CARE CIGNA PPO xxxxxxxxxxx [place]PO ([place] [address] Advance Directives For more information, please contact: [address] [address] Date Inactivated Comments Code Status [...]
--- NOTE | 2019-01-15 08:22 | Diagnostic Imaging Report ---
Examination: Single AP view of the chest. COMPARISON: 2 view chest 12/24/2018 INDICATION: Chest pain DISCUSSION: The lungs are well-inflated and without focal consolidation, pleural effusion, or pneumothorax. Stable cardiomediastinal contour with mild tortuosity and atherosclerotic calcification of the thoracic aorta. No overt pulmonary edema. No acute osseous abnormality. IMPRESSION: 1. No acute cardiopulmonary abnormalities. Signed by: Dr. Kiran Duran M.D. on 01/15/2019 8:18 AM
--- OUTSIDE RECORDS SUMMARY | 2019-01-15 08:41 | XMS REPORT | Clinical Summary ---
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 Name Role Phone Chirag Gary Beck PCP [...] Lot Implanted Type Area Manufactur er 11/10/2018 [id number] / / [id number] Patch,Hemashield Knitted Dbl Yaya Graft/Patc Left: Carotid [employer] 0.3x3 - [id number] Artery Implanted: Qty: 1 on 05/19/2015 by Oswaldo Hair MD [id number] / / Supdelilah Right: Hip Implanted: Qty: 1 on 08/23/2016 by Daniel Case MD Results Not on fileafter 01/14/2018 Insurance Payer Benefit Subscriber ID Type Phone Address Plan / Group MEDICARE MEDICARE A xxxxxxxxxx Medicare B CIGNA - [place]GD CARE CIGNA PPO xxxxxxxxxxx PPO ([place] [address] Advance Directives For more information, please contact: [address] [address] Date Inactivated Comments Code Status [...]
[2019-01-15 08:42] LABS: BASOPHILS % 0.2 % (0.0-1.0); LYMPHOCYTES # (AUTO) 1.3 (1.0-3.2); LYMPHOCYTES % 11.9 % (18.0-39.1); MEAN CORPUSCULAR HEMOGLOBIN 32.1 pg (28-32); MEAN CORPUSCULAR HGB CONC 34.9 g/dL (31-35); MEAN CORPUSCULAR VOLUME 91.9 fL (81-99); MONOCYTES # (AUTO) 0.5 (0.2-0.8); MONOCYTES % 4.6 % (4.4-11.3); NEUTROPHILS # (AUTO) 8.8 (2.1-6.9); NEUTROPHILS % 80.6 % (38.7-80.0); PLATELET COUNT 172 x10e3/uL (140-360); RED BLOOD COUNT 4.68 x10e6/uL (4.3-5.7); RED CELL DISTRIBUTION WIDTH 17.3 % (11.7-14.4)
[2019-01-15] MEDS ORDERED: SODIUM CHLORIDE FLUSH 10 ML SYR INJ PRN (08:45)
[2019-01-15] MEDS ORDERED: DEXTROSE 50% SYRINGE 50 ML IV PRN (08:45)
[2019-01-15] MEDS ORDERED: ONDANSETRON HCL INJ 2MG/ML 2ML 2 MG/ML VIAL IV PRN (08:45)
[2019-01-15 08:48] LABS: INR 1.05; PROTHROMBIN TIME 14.2 seconds (11.9-14.5)
[2019-01-15 08:49] LABS: PARTIAL THROMBOPLASTIN TIME 28.1 seconds (23.8-35.5)
[2019-01-15 09:01] LABS: ALANINE AMINOTRANSFERASE 96 IU/L (0-55); ALBUMIN 3.3 g/dL (3.5-5.0); ALKALINE PHOSPHATASE 69 IU/L (40-150); BLOOD UREA NITROGEN 21 mg/dL (7-26); BUN/CREATININE RATIO 24 (6-25); CALCIUM 9.3 mg/dL (8.4-10.2); CARBON DIOXIDE 25 mmol/L (22-29); CHLORIDE 100 mmol/L (98-107); CREATINE KINASE 48 IU/L (30-200); CREATININE, SERUM 0.87 mg/dL (0.72-1.25); EST GLOMERULAR FILTRATION RATE > 60 ML/MIN (60-); GLUCOSE 248 mg/dL (74-118); SODIUM 133 mmol/L (136-145)
[2019-01-15] MEDS: INSULIN REGULAR, HUMAN 100 UNIT/1 ML 3ML VIAL SQ SCH ×3 (12:55→21:00)
--- NOTE | 2019-01-15 14:34 | NUR ---
Patient resting comfortably at this time without distress noted. Patient denies chest pain. Will continue to monitor patient.
[2019-01-15 17:29] LABS: CREATINE KINASE MB 1.7 ng/mL (0-5.0)
[2019-01-15 20:39] VITALS: BP 126/75
[2019-01-15 21:00] VITALS: BP 126/75
[2019-01-15] MEDS ORDERED: METOPROLOL SUCCINATE 50 MG TAB XL PO SCH (21:00)
[2019-01-15] MEDS ORDERED: NON-FORMULARY MEDICATION ([Eliquis] 5 MG) PO SCH (21:00)
[2019-01-15] MEDS: APIXABAN 5 MG TABLET PO SCH (21:05)
[2019-01-15] MEDS: METOPROLOL SUCCINATE 25 MG TAB XL PO SCH (21:05)
[2019-01-15] MEDS: ATORVASTATIN 10 MG TAB PO SCH (21:05)
[2019-01-15 21:16] VITALS: BP 125/75
[2019-01-16] VITALS (8 sets, daily range): BP systolic 100–131; BP diastolic 59–76
[2019-01-16 01:04] LABS: CREATINE KINASE MB 1.5 ng/mL (0-5.0)
[2019-01-16 06:42] LABS: ALANINE AMINOTRANSFERASE 71 IU/L (0-55); ALBUMIN 2.6 g/dL (3.5-5.0); ALKALINE PHOSPHATASE 53 IU/L (40-150); ANION GAP 9.9 mmol/L (8-16); BLOOD UREA NITROGEN 20 mg/dL (7-26); BUN/CREATININE RATIO 26 (6-25); CALCIUM 8.4 mg/dL (8.4-10.2); CARBON DIOXIDE 25 mmol/L (22-29); CHLORIDE 104 mmol/L (98-107); CHOL/HDL RATIO 3.7 (3.9-4.7); CHOLESTEROL 176 MD/DL (0-199); CREATININE, SERUM 0.77 mg/dL (0.72-1.25); EST GLOMERULAR FILTRATION RATE > 60 ML/MIN (60-); GLUCOSE 217 mg/dL (74-118); HDL CHOLESTEROL 48 MG/DL (40-60); LDL CHOLESTEROL 108 MG/DL (60-130); POTASSIUM 3.9 mmol/L (3.5-5.1); SODIUM 135 mmol/L (136-145); TRIGLYCERIDES 101 MG/DL (0-149)
--- NOTE | 2019-01-16 07:00 | NUR ---
Walking rounds done and report given. Patient is awake, alert and able to make needs known. POC discussed. Patient was instructed to call for assistance and verbalized understanding. Tele #[phone], AFIB @[phone]. Call coyne within reach.
[2019-01-16] MEDS: INSULIN REGULAR, HUMAN 100 UNIT/1 ML 3ML VIAL SQ SCH ×4 (07:30→20:32)
[2019-01-16 08:21] LABS: BASOPHILS % 0.2 % (0.0-1.0); EOSINOPHILS % 0.1 % (0.0-6.0); HEMATOCRIT 40.1 % (38.2-49.6); HEMOGLOBIN 13.9 g/dL (14.0-18.0); MEAN CORPUSCULAR HEMOGLOBIN 32.2 pg (28-32); MEAN CORPUSCULAR HGB CONC 34.7 g/dL (31-35); MEAN CORPUSCULAR VOLUME 92.8 fL (81-99); MONOCYTES # (AUTO) 0.4 (0.2-0.8); MONOCYTES % 4.2 % (4.4-11.3); NEUTROPHILS # (AUTO) 7.5 (2.1-6.9); NEUTROPHILS % 81.8 % (38.7-80.0); PLATELET COUNT 148 x10e3/uL (140-360); RED BLOOD COUNT 4.32 x10e6/uL (4.3-5.7); RED CELL DISTRIBUTION WIDTH 17.3 % (11.7-14.4)
[2019-01-16] MEDS: METOPROLOL SUCCINATE 25 MG TAB XL PO SCH ×2 (08:21→20:27)
[2019-01-16] MEDS: GLIMEPIRIDE 2 MG TAB PO SCH (08:21)
[2019-01-16] MEDS: APIXABAN 5 MG TABLET PO SCH ×2 (08:21→20:27)
[2019-01-16] MEDS: PYRIDOSTIGMINE BROMIDE 60 MG TAB PO SCH ×3 (08:21→20:27)
[2019-01-16 08:33] LABS: CREATINE KINASE MB 1.6 ng/mL (0-5.0)
[2019-01-16 09:45] LABS: ANISOCYTOSIS SLIGHT; EOSINOPHILS % (MANUAL) 1 % (0-7); LYMPHOCYTES % (MANUAL) 13 % (19-48); METAMYELOCYTES % (MANUAL) 2 % (0-0); MONOCYTES % (MANUAL) 3 % (3.4-9.0); NEUTROPHILS % (MANUAL) 79 % (40-74); PLATELET ESTIMATE SLIGHTLY DECREASED; PLATELET MORPHOLOGY COMMENT NORMAL; RBC MORPHOLOGY COMMENT NORMAL
--- NOTE | 2019-01-16 10:39 | NUR ---
Patient off unit to MRI
[2019-01-16] MEDS ORDERED: ONDANSETRON HCL 4 MG ORAL DISINTEGRATING TAB PO PRN (13:15)
--- NOTE | 2019-01-16 15:56 | Diagnostic Imaging Report ---
History: Low back pain, right leg numbness for 3 weeks Comparison studies: None Technique: Pre-contrast sagittal, coronal and axial T2 , sagittal T1 and IR, axial spin density oblique. Postcontrast axial and sagittal T1 Intravenous contrast: cc of Gadavist. Findings: Number of lumbar vertebral bodies:5 Alignment:Normal lordosis.No scoliosis. Soft tissues:No T2 hyperintense inflammatory changes. Paraspinal muscles: Fatty infiltration of the posterior paraspinal musculature secondary to moderate to severe atrophy more significant at the lumbosacral junction. Lower thoracic cord:Normal in signal and morphology. The tip of the conus is at T12-L1. Cauda equina:No masses. No arachnoiditis. Vertebrae: Heterogeneous signal intensity fatty bone marrow, likely degenerative. No compression fractures, infection or neoplasm. Degenerative changes: L1-L2: Disc degeneration with loss of T2 signal. Patent canal and foramina. L2-L3: Disc degeneration with loss of T2 signal. Diffuse disc bulge, mild facet hypertrophy and ligamentum flavum thickening with patent canal and foramina. Fluid at the bilateral facet joints.. L3-L4: Disc degeneration with loss of T2 signal. Diffuse disc bulge and mild facet hypertrophy results in no significant canal stenosis or foraminal narrowing. Fluid of the bilateral facet joints. L4-L5: Disc degeneration with loss of T2 signal. Diffuse disc bulge with superimposed left foraminal annular fissure and moderate facet hypertrophy results in mild canal stenosis without significant foraminal narrowing. Fluid at the bilateral facet joints. L5-S1: Patent canal and foramina. 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 IMPRESSION: Degenerative changes of the lumbar spine without significant (moderate or severe) canal stenosis or foraminal narrowing. Mild to moderate facet hypertrophy from L2 through L5 with synovitis changes. Intrathecal changes of the posterior paraspinal musculature more significant at the lumbosacral junction. 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 Signed by: DR Caesar Boss M.D. on 01/16/2019 3:53 PM
--- NOTE | 2019-01-16 16:24 | NUR ---
Nutrition Screen Note RD Recommendation for Physician: Continue current diet as ordered Plan of Care: RD following, monitoring for tolerance and adequacy Nutrition reason for involvement: Nutrition Risk Trigger MST Primary Diagnose(s): chest pain, chronic Afib PMH: no H&P indicated Ht: 72in Wt: 183.31lb BMI: 24.9kg/m2 IBW: 178lb RD Assessment: (01/16) Chart reviewed. Labs and meds reviewed. 78yo M, who was admitted for chest pain. Visited pt in the room. Pt reported good appetite without any GI complains. Pt denied any chewing or swallowing difficulty. 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 Will continue to monitor and follow. Current Diet: ADA 1800 Malnutrition Evaluation (01/16/2019) The patient does not meet criteria for a specified degree of malnutrition at this time. Will re-evaluate at follow-up as appropriate. Diet Education Needs Assessment: Diet education not indicated. Nutrition Care Level: low Signed: Lisa Thakkar, MS, RD, LD
--- NOTE | 2019-01-16 18:58 | NUR ---
Walking rounds done and report given.
[2019-01-16] MEDS: ATORVASTATIN 10 MG TAB PO SCH (20:27)
[2019-01-17] VITALS (7 sets, daily range): BP systolic 111–153; BP diastolic 66–84
--- NOTE | 2019-01-17 07:25 | NUR ---
Pt received resting in bed. Alert and oriented x4. Pt with high heart rate when ambulating. Oriented to staff and surroundings. Encouraged to press call coyne if help needed. Emotional support given. Will monitor
--- NOTE | 2019-01-17 09:05 | NUR ---
All meds given as ordered. Call coyne within reach. Will monitor
[2019-01-17] MEDS: METOPROLOL SUCCINATE 25 MG TAB XL PO SCH ×2 (09:50→21:00)
[2019-01-17] MEDS: PYRIDOSTIGMINE BROMIDE 60 MG TAB PO SCH ×3 (09:50→21:00)
[2019-01-17] MEDS: APIXABAN 5 MG TABLET PO SCH ×2 (09:50→21:00)
[2019-01-17] MEDS: GLIMEPIRIDE 2 MG TAB PO SCH (09:50)
[2019-01-17] MEDS: INSULIN REGULAR, HUMAN 100 UNIT/1 ML 3ML VIAL SQ SCH ×4 (09:51→21:00)
--- NOTE | 2019-01-17 14:11 | NUR ---
PROVIDED IMM EDUCATED, GOT SIGNATURE AND FILED IN CHART LEFT COPY BEDSIDE FOR PT WITH CARD FOR ANY FURTHER QUESTIONS.
--- NOTE | 2019-01-17 19:13 | NUR ---
Pt resting comfortably in bed. Dr. Dillon is here to assess pt. Will endorse to next shift
--- NOTE | 2019-01-17 20:15 | NUR ---
Received report from previous nurse, call-light within reach, patient resting in bed, no acute distress noted, in stable condition, will continue to monitor.
--- NOTE | 2019-01-17 20:15 | NUR ---
Received report from previous nurse, call-light within reach, patient resting in bed, no acute distress noted, in stable condition, will continue to monitor.
[2019-01-17] MEDS: ATORVASTATIN 10 MG TAB PO SCH (21:00)
--- NOTE | 2019-01-17 23:00 | NUR ---
Patient noted with infiltrated IV to right-AC, removd Addendum: 01/18/19 at 0034 by Enmanuel Up RN Patient noted with infiltrated IV to right-AC, removed, pressure applied, no active bleeding noted. PIV access gained to left-AC, 22g, patient tolerated well.
[2019-01-18] VITALS (7 sets, daily range): BP systolic 113–127; BP diastolic 57–72
--- NOTE | 2019-01-18 01:19 | NUR ---
Educated patient on needs of bedalarm and urinal and harms of not using them and patient still refused.
--- NOTE | 2019-01-18 02:15 | Consultation ---
DATE OF CONSULTATION: 01/17/2019 Neurology Consult Note HISTORY OF PRESENT ILLNESS: Mr. Sauceda is a 78-year-old right-hand dominant man with past medical history significant for hypertension, hyperlipidemia, diabetes mellitus type 2, and atrial fibrillation, admitted to [facility] on January 15, 2019, from Dr. Gary Beard's office with chest pain and palpitations. The Neurology service is consulted for weakness affecting the right leg. Approximately 2 weeks ago, the patient experienced the sudden onset of weakness and numbness affecting the entirety of the right leg. Mr. Sauceda states he is able to walk, but his gait is antalgic, favoring the right leg, with circumduction at the right hip. The patient does report difficulty with standing from a seated position as well as climbing stairs. As stated above, the patient reports numbness affecting the entirety of the right leg. He reports tingling as well, but this is confined to both feet, right greater than left. Mr. Sauceda does not report a visual field cut or other disturbance, dysarthria, aphasia, facial droop, weakness of the right arm, numbness of the right side of the face or the right arm, dizziness, or confusion. He does not endorse low back pain. He does not report numbness/tingling in the perineal region or bladder/bowel dysfunction. Mr. Sauceda does routinely cross his legs at the knee. Mr. Sauceda does not report an injury preceding the weakness and numbness in the right leg. The patient has taken Eliquis 5 mg by mouth twice daily since May of 2017. He endorses compliance with this medication. REVIEW OF SYSTEMS: Chest pain, fast and irregular heartbeat, weakness of the right leg, numbness of the right leg, tingling of both feet, impairment of balance and gait. Otherwise, a 12-point review of systems is negative. PAST MEDICAL HISTORY: Hypertension, hyperlipidemia, diabetes mellitus type 2, atrial fibrillation, chronic bronchitis, history of right carotid artery stenosis. PAST SURGICAL HISTORY: Right carotid endarterectomy, bilateral foot surgeries, appendectomy, left knee meniscus repair, tonsillectomy, bilateral LASIK eye surgery. PAST HOSPITALIZATIONS: Surgeries/procedures as listed, multiple hospitalizations for chest pain, atrial fibrillation with rapid ventricular response, and chronic bronchitis. FAMILY MEDICAL HISTORY: The patient's paternal and maternal grandparents are . Their medical histories are unknown. The patient's father is . His medical history is unknown. The patient's mother is . Her only significant medical history was hypertension. The patient has 1 sister, who is alive. Her medical history is unknown. Mr. Sauceda has 2 children, a son and a daughter, both of whom are alive. Mr. Sauceda is estranged from his children and does not know their medical histories. SOCIAL HISTORY: Mr. Sauceda is . 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 The patient does report a prior history of tobacco use, but quit smoking cigarettes 40 years ago. The patient quit drinking alcohol 28 years ago. The patient does not report current or prior recreational drug use. HOME MEDICATIONS: Metoprolol 25 mg by mouth twice daily, atorvastatin 10 mg by mouth at bedtime daily, glimepiride 2 mg by mouth daily, Eliquis 5 mg by mouth twice daily. Home medications: Eliquis, Lipitor, Amaryl, Humulin, metoprolol, Zofran, pyridostigmine. ALLERGIES: PENICILLIN, CHLORPHENIRAMINE, DEXTROMETHORPHAN. NO KNOWN FOOD ALLERGIES. NO KNOWN ALLERGIES TO LATEX. NO KNOWN ALLERGIES TO IODINE OR OTHER CONTRAST MATERIALS. PHYSICAL EXAMINATION: VITAL SIGNS: Height 72 inches, weight 188 pounds, BMI 25.5 kg/m2, blood pressure 131/71 mmHg, pulse 79 beats per minute, respiratory rate 20 breaths per minute, and oxygen saturation 98% on room air. GENERAL: The patient is awake and alert, does not appear distressed. HEENT: Normocephalic, atraumatic. Pupils are surgical. Moist mucous membranes. NECK: Supple. No appreciable thyromegaly. No appreciable carotid bruits. CARDIOVASCULAR: S1 and S2, regular rate and rhythm. No murmurs, rubs, or gallops. RESPIRATORY: Clear to auscultation bilaterally. No wheezes, rhonchi, or rales. EXTREMITIES: Skin is warm and dry. No clubbing or cyanosis. There is 1+ pretibial pitting edema bilaterally. The posterior tibial and dorsalis pedis pulses are 1+ and symmetric. SKIN: No rashes or lesions. NEUROLOGIC: MEMORY/ATTENTION: The patient is awake and alert, oriented to person, place, time, and situation. CRANIAL NERVES: Cranial nerve I-not tested. Cranial nerve II, III, IV, and - pupils are surgical. Extraocular movements intact. No nystagmus. Cranial nerve V- sensation to light touch and pinprick is intact in the bilateral V1 through V3 distributions. Strength of the temporalis and masseter muscles are within normal limits. Cranial nerve VII-the face is symmetric as are all facial movements. Strength is within normal limits. Cranial nerve VIII-hearing is diminished to finger rub bilaterally. Cranial nerve IX, X-the soft palate elevates equally and symmetrically. Cranial nerve XI-normal strength of the bilateral sternocleidomastoid and trapezius muscles. Cranial nerve XII-the tongue protrudes midline and moves symmetrically from [id number]. STRENGTH: Bulk is normal. Strength is 5/5 in the bilateral deltoids, biceps, triceps, wrist flexors and extensors, finger flexors and extensors, and intrinsic hand muscles. Strength is 4/5 in the bilateral hip flexors. Left knee flexors are 4/5, left knee extensors are 4+/5, left ankle dorsiflexion is 4/5, left ankle plantar flexion is 4+/5, and left intrinsic foot muscles are 4+/5. Right knee flexors are 3+/5, right knee extensors are 4-/5, right ankle dorsiflexion is 3+/5, right ankle plantar flexion is 4-/5, and right intrinsic foot muscles are 3+/5. Tone is normal in all four extremities. DTRs: Deep tendon reflexes are 1+ and symmetric at the triceps, biceps, brachioradialis, and patellas. Deep tendon reflexes are absent and symmetric at the Achilles. Plantar responses are flexor bilaterally. SENSATION: Sensation is diminished to light touch and pinprick in the stocking distribution, right greater than left. CEREBELLAR: Xvcriu-sgsx-fwvcng and heel-tom movements are intact without dysmetria or other impairment. GAIT: Deferred. SPEECH: Spontaneous speech is normal without appreciable dysarthria or aphasia. Repetition is intact. INVOLUNTARY MOVEMENTS: None. PRONATOR DRIFT: None. LABORATORY DATA: The most recent comprehensive metabolic panel is significant for an elevated BUN to creatinine ratio of 26, serum glucose of 217, ALT of 71, total protein of 5.2, and albumin of 2.6. Cardiac enzymes are negative x4. B-natriuretic peptide 346.5. Total cholesterol 176, triglycerides 101, LDL cholesterol 108, HDL cholesterol 48. Serum glucoses have ranged from 188 to 268 in the past 24 hours. The CBC with differential and platelets reveals a white blood cell count of 9.18 with a left shift with 81.8% neutrophils, 11.0% lymphocytes, 4.2% monocytes, 0.1% eosinophils, and 0.2% basophils. The hemoglobin and hematocrit are 13.9 and 40.1, respectively. The platelet count is 148. PT 14.2, INR 1.05, PTT 28.1. DIAGNOSTIC STUDIES: Electrocardiogram on 01/15/2019: Atrial fibrillation with rapid ventricular response at 123 beats per minute with premature aberrantly conducted complexes. Chest x-ray on 01/15/2019: No acute cardiopulmonary abnormalities. MRI of the lumbar spine on 01/16/2019: There is multilevel degenerative disk disease without significant spinal canal or neuroforaminal narrowing. ASSESSMENT AND PLAN: Mr. Sauceda is a 78-year-old right-hand dominant man with multiple vascular risk factors, admitted to [facility] on January 15, 2019, with chest pain, palpitations, and subacute weakness and numbness affecting the right leg. The patient's neurological examination is significant for weakness in the bilateral lower extremities, right greater than left, absent deep tendon reflexes at the Achilles, and diminished sensation to light touch and pinprick in the stocking distribution, right greater than left. The patient's laboratory data and other diagnostic studies have been reviewed and are documented above. Due to the patient's multiple vascular risk factors and the acute onset of weakness and numbness of the right leg, a stroke, probably in the left anterior cerebral artery distribution, is a possible diagnosis. Other possible, though less likely, diagnoses are an entrapment neuropathy of the right leg or lumbosacral radiculopathy (ies) of the right leg or a combination of these. RECOMMENDATIONS: Are as follows: 1. An MRI of the brain without contrast will be ordered to evaluate for a stroke as the etiology of the patient's right leg weakness and numbness. Further recommendations will be made once the results of the study are known. 2. Defer treatment of the remaining medical comorbidities to the primary and other services following the patient at this time. Thank you for this consultation. I will continue to follow the patient while he remains in the hospital. TIME SPENT: 50 minutes. Kaia Dillon MD CP/AYDEE /[id number] MTDD
[2019-01-18] MEDS: INSULIN REGULAR, HUMAN 100 UNIT/1 ML 3ML VIAL SQ SCH ×4 (08:10→21:20)
[2019-01-18] MEDS: APIXABAN 5 MG TABLET PO SCH ×2 (08:53→20:48)
[2019-01-18] MEDS: METOPROLOL SUCCINATE 25 MG TAB XL PO SCH ×2 (08:53→20:48)
[2019-01-18] MEDS: PYRIDOSTIGMINE BROMIDE 60 MG TAB PO SCH ×3 (08:53→20:48)
[2019-01-18] MEDS: GLIMEPIRIDE 2 MG TAB PO SCH (08:53)
--- NOTE | 2019-01-18 16:08 | NUR ---
RECEIVED REPORT FROM EDY CHACKO
--- NOTE | 2019-01-18 16:45 | NUR ---
PT TRANSFERRED TO THE UNIT VIA WHEELCHAIR, NO S/S OF DISTRESS. PT WAS ORIENTED TO CALL LIGHT, TV, ROOM. IS AT THE BEDSIDE. PT DENIES ANY PAIN, NO OTHER COMPLAINTS.
--- NOTE | 2019-01-18 19:13 | NUR ---
gave report to pm nurse. pt is awake lying in bed, no s/s of distress. is at the bedside
[2019-01-18] MEDS: ATORVASTATIN 10 MG TAB PO SCH (20:48)
[2019-01-19] VITALS (8 sets, daily range): BP systolic 112–133; BP diastolic 61–76
[2019-01-19] MEDS: INSULIN REGULAR, HUMAN 100 UNIT/1 ML 3ML VIAL SQ SCH ×4 (07:44→20:44)
[2019-01-19] MEDS: PYRIDOSTIGMINE BROMIDE 60 MG TAB PO SCH ×3 (08:36→20:44)
[2019-01-19] MEDS: METOPROLOL SUCCINATE 25 MG TAB XL PO SCH ×2 (08:36→20:44)
[2019-01-19] MEDS: APIXABAN 5 MG TABLET PO SCH ×2 (08:36→20:43)
[2019-01-19] MEDS: GLIMEPIRIDE 2 MG TAB PO SCH (08:36)
--- NOTE | 2019-01-19 12:54 | Diagnostic Imaging Report ---
History: Right leg numbness Comparison studies: Head CT on 12/24/2018 Technique: Sagittal T2; axial DWI, FLAIR, MPGR, T1, Coronal FLAIR. Intravenous contrast: None Findings: Scalp: Normal in signal . No masses . Bone marrow: Normal in signal intensity. Extra-axial: No masses or fluid collections. Brain sulci: Appropriate for age. Ventricles: Normal in size . No hydrocephalus . Parenchyma: Multiple, scattered T2 FLAIR hyperintense foci in the deep and subcortical supratentorial white matter are nonspecific small vessel ischemic changes. No masses, hemorrhage, acute or chronic cortical ischemic insults. Suprasellar region: No abnormalities. Craniocervical junction: No abnormalities. Patent foramen magnum. No Chiari one malformation. Vessels: Normal flow-voids in the arteries and sinuses. IMPRESSION: 1. No acute abnormalities. 2. No changes compared to the head CT on 12/24/2018. Persistent findings: Mild age related generalized volume loss. Mild supratentorial white matter small vessel ischemic changes. Signed by: Dr. Ambrocio Moreno M.D. on 01/19/2019 12:51 PM
[2019-01-19] MEDS: ATORVASTATIN 10 MG TAB PO SCH (20:44)
[2019-01-20] VITALS: BP 116/58
[2019-01-20 04:00] VITALS: BP 131/71
--- NOTE | 2019-01-20 07:00 | NUR ---
RECEIVED BEDSIDE SHIFT REPORT FROM ARTILLERY SPECIALIST RN. PT DENIES NEEDS AT THIS TIME
[2019-01-20] MEDS: INSULIN REGULAR, HUMAN 100 UNIT/1 ML 3ML VIAL SQ SCH (07:30)
[2019-01-20 07:36] VITALS: BP 117/76
[2019-01-20 08:00] VITALS: BP 117/76
[2019-01-20] MEDS: GLIMEPIRIDE 2 MG TAB PO SCH (08:31)
[2019-01-20] MEDS: APIXABAN 5 MG TABLET PO SCH (08:31)
[2019-01-20] MEDS: PYRIDOSTIGMINE BROMIDE 60 MG TAB PO SCH (08:32)
--- NOTE | 2019-01-20 08:50 | NUR ---
IMM letter delivered and explained to pt. He verbalized understanding. States he is ready to go home. Signed copy placed in chart. Copy to pt.
[2019-01-20] MEDS: METOPROLOL SUCCINATE 25 MG TAB XL PO SCH (09:00)
--- NOTE | 2019-01-22 05:08 | Discharge Summary ---
DISCHARGE DIAGNOSIS: Right footdrop. HISTORY OF PRESENT ILLNESS AND HOSPITAL COURSE: See hospital chart for full details. This patient is a gentleman, who presented with some chest pain that was atypical. EKG was normal. Troponins were normal, so he ruled out for HI, but then while in the hospital was noted that he had been complaining over a couple of days of some right lower extremity discomfort as well some weakness, where he was noticed to have footdrop and weakness in that right leg. MRI of the back and lumbar spine was unremarkable. He was consulted with Neurology, who also performed a MRI of the brain which was unremarkable. So, the patient was told that he needed outpatient nerve conduction study, which he was agreeable to. He stated that he felt much better at the time of discharge from his weakness, but was still having trouble with that right leg, so he is to follow up in [address] Dillon to do the outpatient nerve conduction study and 2 weeks with me. Please see hospital chart for full details. MD JASMINA Barton/AYDEE /[id number]
== END 2019-01-20 10:23 | disposition home or self-care (01) | DRG 310 ==
LOC: ER 07:50 → ERHOLD 08:39 → IMCU 20:52 → OBSVTOIN 01-17 10:49 → MED/SURG2 01-18 16:43
PROVIDERS: ADMIT Internal Medicine; ATTEND Internal Medicine
DX: I48.91 Unspecified atrial fibrillation (principal); M21.371 Foot drop, right foot; E11.9 Type 2 diabetes mellitus without complications; I10 Essential (primary) hypertension; M54.30 Sciatica, unspecified side; M54.10 Radiculopathy, site unspecified
CPT/HCPCS: 36415; 70551; 71045; 72148; 80053; 80061; 82550; 82553; 82948; 83880; 84484; 85025; 85610; 85730; 93005; 96372; 99284; G0378

== ENCOUNTER 2020-02-14 13:29 | Inpatient (IN) | payer MEDICARE, OTHER ==
[~2020-02-14] VITALS: Ht 182.9 cm; Wt 78.0 kg
[2020-02-14] MEDS ORDERED: SODIUM CHLORIDE 0.9% 500ML 500 ML IV ONE (14:15)
[2020-02-14] MEDS ORDERED: MIDAZOLAM HCL 2 MG/2 ML VIAL ONE (14:20)
[2020-02-14] MEDS ORDERED: FENTANYL CITRATE/PF 100MCG/2 ML INJ ONE (14:20)
[2020-02-14] MEDS ORDERED: DIPHENHYDRAMINE HCL INJ 50 MG/ML VIAL IV ONE (14:30)
[2020-02-14] MEDS ORDERED: METOCLOPRAMIDE HCL 10 MG/2ML VIAL IV ONE (14:30)
--- NOTE | 2020-02-14 15:17 | Diagnostic Imaging Report ---
EXAMINATION: CHEST SINGLE (PORTABLE) INDICATION: ^HICCUPS ^[id number] ^1420 COMPARISON: Chest radiograph 01/15/2019 FINDINGS: AP view TUBES and LINES: None. LUNGS: Lungs are well inflated. Lungs are clear. There is no evidence of pneumonia or pulmonary edema. PLEURA: No pleural effusion or pneumothorax. HEART AND MEDIASTINUM: The cardiomediastinal silhouette is unremarkable.. BONES AND SOFT TISSUES: No acute osseous lesion. Soft tissues are unremarkable. UPPER ABDOMEN: No free air under the diaphragm. IMPRESSION: No acute thoracic abnormality. Signed by: Dr. Tete Cardozo M.D. on 02/14/2020 3:13 PM
[2020-02-14 16:17] LABS: BASOPHILS # (AUTO) 0.1 (0.0-0.1); BASOPHILS % 0.6 % (0.0-1.0); EOSINOPHILS # (AUTO) 0.1 (0.0-0.4); EOSINOPHILS % 0.7 % (0.0-6.0); HEMATOCRIT 40.2 % (38.2-49.6); HEMOGLOBIN 12.9 g/dL (14.0-18.0); LYMPHOCYTES % 24.3 % (18.0-39.1); MEAN CORPUSCULAR HEMOGLOBIN 29.7 pg (28-32); MEAN CORPUSCULAR HGB CONC 32.1 g/dL (31-35); MEAN CORPUSCULAR VOLUME 92.4 fL (81-99); MONOCYTES # (AUTO) 0.9 (0.2-0.8); MONOCYTES % 10.7 % (4.4-11.3); NEUTROPHILS % 62.3 % (38.7-80.0); PLATELET COUNT 234 x10e3/uL (140-360); RED BLOOD COUNT 4.35 x10e6/uL (4.3-5.7); RED CELL DISTRIBUTION WIDTH 17.1 % (11.7-14.4)
[2020-02-14 16:30] LABS: CLARITY,URINE CLEAR (CLEAR); COLOR,URINE YELLOW (YELLOW)
[2020-02-14 16:31] LABS: BILIRUBIN,URINE NEGATIVE (NEGATIVE); KETONES,URINE NEGATIVE (NEGATIVE); LEUKOCYTE ESTERASE ,URINE NEGATIVE (NEGATIVE); NITRITE,URINE NEGATIVE (NEGATIVE); PROTEIN,URINE DIPSTICK NEGATIVE (NEGATIVE); URINE UROBILINOGEN 0.2 mg/dL (0.2 - 1)
[2020-02-14 16:39] LABS: ALANINE AMINOTRANSFERASE 64 IU/L (0-55); ALBUMIN 3.6 g/dL (3.5-5.0); ALBUMIN/GLOBULIN RATIO 0.9 (0.8-2.0); ALKALINE PHOSPHATASE 96 IU/L (40-150); ANION GAP 12.6 mmol/L (8-16); BLOOD UREA NITROGEN 16 mg/dL (7-26); BUN/CREATININE RATIO 14 (6-25); CALCIUM 9.3 mg/dL (8.4-10.2); CARBON DIOXIDE 26 mmol/L (22-29); CHLORIDE 96 mmol/L (98-107); CREATINE KINASE 27 IU/L (30-200); CREATININE, SERUM 1.15 mg/dL (0.72-1.25); EST GLOMERULAR FILTRATION RATE > 60 ML/MIN (60-); MAGNESIUM 1.8 MG/DL (1.3-2.1); POTASSIUM 4.6 mmol/L (3.5-5.1); SODIUM 130 mmol/L (136-145)
[2020-02-14 16:54] LABS: BACTERIA,URINE RARE /HPF; EPITHELIAL CELLS,URINE FEW /LPF
[2020-02-14 16:56] LABS: INR 1.23; PROTHROMBIN TIME 16.3 seconds (11.9-14.5)
[2020-02-14 16:57] LABS: PARTIAL THROMBOPLASTIN TIME 38.6 seconds (23.8-35.5)
[2020-02-14 17:03] LABS: GLUCOSE 55 mg/dL (74-118)
[2020-02-14] MEDS ORDERED: DEXTROSE 50% SYRINGE 50 ML IV STA (17:08)
[2020-02-14] MEDS ORDERED: DEXTROSE 50% SYRINGE 50 ML IV ONE (17:10)
[2020-02-14] MEDS ORDERED: DEXTROSE 5% 1,000 ML IV ONE (18:45)
--- NOTE | 2020-02-14 19:23 | Emergency Department Note ---
History of Present Illnes History of Present Illness Chief Complaint: Abdominal Complaints History of Present Illness This is a 79 year old male PATIENT IN FROM HOME WITH COMPLAINTS OF VOMITING LAST NIGHT, AND HICCUPS ALL NIGHT. PATIENT C/O NAUSEA, APPEARS IN NO DSITRESS, RESP EVEN AND NONLABORED, DENIES DIARRHEA. ALSO WITH COMPLAINTS OF SHORTNESS OF BREATH OFF AND ON X MONTHS. 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 Any updates have been documented here. Past Medical History Recent Fever: No Clinical Suspicion of Infectio: No New/Unexplained Change in Ment: No Past Medical History: Hypertension, Diabetes, A-Fib, CAD, Hyperlipedemia Other Medical History: 60% BLOCKAGE IN HEART IN 05/2017 RT LEG NUMBNESS STATES NERVE PAIN Past Surgical History: Appendectomy, Knee Replacement Other Surgery: ENDOCARDECTOMY FEET LEFT KNEE CARDIAC ABLATION Social History Smoking Cessation: Never Smoker Counseling Performed: Yes Alcohol Use: None Any Illegal Drug Use: No Physically hurt or threatened: No Other Any Pre-Existing Lines (PICC,: No Review of Systems Review of Systems Constitutional: Reports as per HPI EENTM: Reports no symptoms Cardiovascular: Reports no symptoms Respiratory: Reports no symptoms Gastrointestinal: Reports no symptoms Genitourinary: Reports no symptoms Musculoskeletal: Reports no symptoms Integumentary: Reports no symptoms Neurological: Reports no symptoms Psychological: Reports no symptoms Endocrine: Reports no symptoms Hematological/Lymphatic: Reports no symptoms Physical Exam Related Data Allergies: Coded Allergies: Penicillins (Verified Allergy, Mild, RASH, 05/31/09) chlorpheniramine (Verified Allergy, Mild, RASH, 06/01/09) dextromethorphan (Verified Allergy, Mild, RASH, 06/01/09) Triage Vital Signs Vital Signs Date Time Temp Pulse Resp B/P (MAP) Pulse Ox O2 Delivery O2 Flow Rate FiO2 02/14/20 13:51 97.9 52 18 137/62 100 Room Air Vital signs reviewed: Yes Physical Exam CONSTITUTIONAL Constitutional: Present well-developed, Present well-nourished HENT HENT: Present normocephalic, Present atraumatic, Present oropharynx clear/moist, Present nose normal HENT L/R: Present left ext ear normal, Present right ext ear normal EYES Eyes: Reports PERRL, Reports conjunctivae normal NECK Neck: Present ROM normal PULMONARY Pulmonary: Present effort normal, Present breath sounds normal CARDIOVASCULAR Cardiovascular: Present regular rhythm, Present heart sounds normal, Present capillary refill normal, Present normal rate GASTROINTESTINAL Abdominal: Present soft, Present nontender, Present bowel sounds normal GENITOURINARY Genitourinary: Present exam deferred SKIN Skin: Present warm, Present dry MUSCULOSKELETAL Musculoskeletal: Present ROM normal NEUROLOGICAL Neurological: Present alert, Present oriented x 3, Present no gross motor or sensory deficits PSYCHOLOGICAL Psychological: Present mood/affect normal, Present judgement normal Results Laboratory Result Diagram: 02/14/20 1545 02/14/20 1545 Laboratory Laboratory Tests Test 02/14/20 15:45 White Blood Count 8.02 x10e3/uL (4.8-10.8) Red Blood Count 4.35 x10e6/uL (4.3-5.7) Hemoglobin 12.9 g/dL (14.0-18.0) Hematocrit 40.2 % (38.2-49.6) Mean Corpuscular Volume 92.4 fL (81-99) Mean Corpuscular Hemoglobin 29.7 pg (28-32) Mean Corpuscular Hemoglobin Concent 32.1 g/dL (31-35) Red Cell Distribution Width 17.1 % (11.7-14.4) Platelet Count 234 x10e3/uL (140-360) Neutrophils (%) (Auto) 62.3 % (38.7-80.0) Lymphocytes (%) (Auto) 24.3 % (18.0-39.1) Monocytes (%) (Auto) 10.7 % (4.4-11.3) Eosinophils (%) (Auto) 0.7 % (0.0-6.0) Basophils (%) (Auto) 0.6 % (0.0-1.0) Neutrophils # (Auto) 5.0 (2.1-6.9) Lymphocytes # (Auto) 2.0 (1.0-3.2) Monocytes # (Auto) 0.9 (0.2-0.8) Eosinophils # (Auto) 0.1 (0.0-0.4) Basophils # (Auto) 0.1 (0.0-0.1) Absolute Immature Granulocyte (auto 0.11 x10e3/uL (0-0.1) Prothrombin Time 16.3 seconds (11.9-14.5) Prothromb Time International Ratio 1.23 Activated Partial Thromboplast Time 38.6 seconds (23.8-35.5) Urine Color Yellow (YELLOW) Urine Clarity Clear (CLEAR) Urine pH 5 (5 - 7) Urine Specific Stanton 1.020 (1.010-1.025) Urine Protein Negative (NEGATIVE) Urine Glucose (UA) Negative (NEGATIVE) Urine Ketones Negative (NEGATIVE) Urine Blood Trace (NEGATIVE) Urine Nitrite Negative (NEGATIVE) Urine Bilirubin Negative (NEGATIVE) Urine Urobilinogen 0.2 mg/dL (0.2 - 1) Urine Leukocyte Esterase Negative (NEGATIVE) Urine RBC 6-10 /HPF (0-5) Urine WBC 6-10 /HPF (0-5) Urine Epithelial Cells Few /LPF (NONE) Urine Bacteria Rare /HPF (NONE) Sodium Level 130 mmol/L (136-145) Potassium Level 4.6 mmol/L (3.5-5.1) Chloride Level 96 mmol/L (98-107) Carbon Dioxide Level 26 mmol/L (22-29) Anion Gap 12.6 mmol/L (8-16) Blood Urea Nitrogen 16 mg/dL (7-26) Creatinine 1.15 mg/dL (0.72-1.25) Estimat Glomerular Filtration Rate > 60 ML/MIN (60-) BUN/Creatinine Ratio 14 (6-25) Glucose Level 55 mg/dL (74-118) Calcium Level 9.3 mg/dL (8.4-10.2) Magnesium Level 1.8 MG/DL (1.3-2.1) Total Bilirubin 0.7 mg/dL (0.2-1.2) Aspartate Amino Transf (AST/SGOT) 48 IU/L (5-34) Alanine Aminotransferase (ALT/SGPT) 64 IU/L (0-55) Alkaline Phosphatase 96 IU/L (40-150) Creatine Kinase 27 IU/L (30-200) Creatine Kinase MB 1.20 ng/mL (0-5.0) Troponin I 0.004 ng/mL (0-0.300) Total Protein 7.6 g/dL (6.5-8.1) Albumin 3.6 g/dL (3.5-5.0) Globulin 4.0 g/dL (2.3-3.5) Albumin/Globulin Ratio 0.9 (0.8-2.0) Lab results reviewed: Yes Imaging Imaging results reviewed: Yes Impressions Procedure: [id number] DX/CHEST SINGLE (PORTABLE) Exam Date: 02/14/20 Exam Time: 1420 REPORT STATUS: Signed EXAMINATION: CHEST SINGLE (PORTABLE) INDICATION: ^HICCUPS ^[id number] ^1420 COMPARISON: Chest radiograph 01/15/2019 FINDINGS: AP view TUBES and LINES: None. LUNGS: Lungs are well inflated. Lungs are clear. There is no evidence of pneumonia or pulmonary edema. PLEURA: No pleural effusion or pneumothorax. HEART AND MEDIASTINUM: The cardiomediastinal silhouette is unremarkable.. BONES AND SOFT TISSUES: No acute osseous lesion. Soft tissues are unremarkable. UPPER ABDOMEN: No free air under the diaphragm. IMPRESSION: No acute thoracic abnormality. Signed by: Dr. Tete Cardozo M.D. 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: Interpreted by ED physician Date: Feb 14, 2020 Time: 15:52 Rhythm: sinus bradycardia (WITH OCCAS PVC'S) Rate: bradycardia (46) QRS axis: normal ST segment flattening: V2, V3 T wave inversion: V1, V2, V3 Clinical Impression: abnormal ECG Assessment & Plan Medical Decision Making MDM CBC, CHEMS, CARDIACS, ECG, CXR - R/O STEMI/NSTEMI, ELECTROLYTE ABNL Reassessment Reassessment ADMIT OBS TELE R/O ACS, IV D5 (HYPOGLYCEMIA ON SULFONYLUREA) Assessment & Plan Final Impression: (1) Hypoglycemia (2) Sinus bradycardia (3) Hiccups Depart Disposition: ADMITTED Last Vital Signs Date Time Temp Pulse Resp B/P (MAP) Pulse Ox O2 Delivery O2 Flow Rate FiO2 02/14/20 18:30 48 18 141/58 100 02/14/20 13:51 97.9 Room Air Home Meds Reported Medications Atorvastatin Calcium (ATORVASTATIN CALCIUM) 10 Mg Tablet, 10 MG PO HS 12/24/18 Glimepiride (GLIMEPIRIDE) 2 Mg Tablet, 2 MG PO DAILY 12/24/18 [Eliquis] No Conflict Check, 5 MG PO BID 12/24/18 Metoprolol Succinate (METOPROLOL SUCCINATE) 50 Mg Tab.er.24h, 25 MG PO BID 12/24/18 Medications in the ED Sodium Chloride 500 ml @ 0 mls/hr Q0M ONCE IV ; Start 02/14/20 at 14:15; Stop 02/14/20 at 14:16; Status DC Metoclopramide HCl 5 mg ONCE ONCE IV ; Start 02/14/20 at 14:30; Stop 02/14/20 at 14:31; Status DC Diphenhydramine HCl 12.5 mg NOW ONCE IV ; Start 02/14/20 at 14:30; Stop 02/14/20 at 14:31; Status DC Dextrose 50 ml STK-MED ONCE IV ; Start 02/14/20 at 17:10; Stop 02/14/20 at 17:04; Status DC Dextrose 50 ml NOW STAT IV Last administered on 02/14/20at 17:11; Admin Dose 50 ML; Start 02/14/20 at 17:08; Stop 02/14/20 at 17:10; Status DC Dextrose 1,000 ml @ 80 mls/hr [id number] ONCE IV ; Start 02/14/20 at 18:45; Stop 02/15/20 at 07:14 ELIZABETH MORAN MD Feb 14, 2020 19:23
[2020-02-15] VITALS (9 sets, daily range): BP systolic 137–168; BP diastolic 53–81
[2020-02-15] MEDS ORDERED: DEXTROSE 5% 1,000 ML IV ONE (00:17)
--- NOTE | 2020-02-15 02:18 | NUR ---
PT ARRIVED BY BY STRETCHER TO ROOM 105. PT IS AAOX3, RR EVEN AND NON-LABORED, ON ROOM AIR. NO S/SX OF DISTRESS NOTED. PT ORIENTED TO HOSPITAL ROOM, CALL LIGHT, PHONE, BED CONTROLS AND LIGHTS. LEFT PT LAYING SEMI FOWLERS IN BED, BED IN LOW LOCKED POSITION, SIDE RAILS UPX2, CALL LIGHT AND PHONE WITHIN REACH.
[2020-02-15] MEDS ORDERED: PLAVIX75 MG PO (02:59)
[2020-02-15] MEDS ORDERED: CALCIUM MAGNES1 EAC2 PO (02:59)
[2020-02-15] MEDS ORDERED: METFORMIN HCL500 MG PO (02:59)
[2020-02-15] MEDS ORDERED: METOPROLOL SUCC25 MG PO (02:59)
[2020-02-15] MEDS ORDERED: FOLIC ACID PO (02:59)
[2020-02-15] MEDS ORDERED: ELIQUIS5 MG PO (02:59)
[2020-02-15] MEDS ORDERED: [UNRECOGNIZED DRUG - OTHER] PO (02:59)
[2020-02-15 03:34] LABS: CREATINE KINASE MB 1.3 ng/mL (0-5.0)
--- NOTE | 2020-02-15 07:00 | NUR ---
received bedside report. pt is alert resting in bed, no s/s of distress. pt currently has the hiccups, states that they have been ongoing. call light within reach and instructed pt to call RN for help
[2020-02-15 07:22] LABS: BASOPHILS # (AUTO) 0.1 (0.0-0.1); BASOPHILS % 0.7 % (0.0-1.0); EOSINOPHILS # (AUTO) 0.1 (0.0-0.4); EOSINOPHILS % 1.2 % (0.0-6.0); HEMATOCRIT 34.3 % (38.2-49.6); HEMOGLOBIN 11.3 g/dL (14.0-18.0); LYMPHOCYTES # (AUTO) 1.6 (1.0-3.2); LYMPHOCYTES % 23.7 % (18.0-39.1); MEAN CORPUSCULAR HEMOGLOBIN 29.8 pg (28-32); MEAN CORPUSCULAR HGB CONC 32.9 g/dL (31-35); MEAN CORPUSCULAR VOLUME 90.5 fL (81-99); MONOCYTES # (AUTO) 0.8 (0.2-0.8); MONOCYTES % 11.2 % (4.4-11.3); NEUTROPHILS # (AUTO) 4.1 (2.1-6.9); NEUTROPHILS % 61.6 % (38.7-80.0); PLATELET COUNT 198 x10e3/uL (140-360); RED BLOOD COUNT 3.79 x10e6/uL (4.3-5.7); RED CELL DISTRIBUTION WIDTH 16.7 % (11.7-14.4)
[2020-02-15 07:42] LABS: ALANINE AMINOTRANSFERASE 50 IU/L (0-55); ALBUMIN/GLOBULIN RATIO 0.9 (0.8-2.0); ALKALINE PHOSPHATASE 77 IU/L (40-150); ANION GAP 10.8 mmol/L (8-16); BLOOD UREA NITROGEN 15 mg/dL (7-26); BUN/CREATININE RATIO 16 (6-25); CALCIUM 8.5 mg/dL (8.4-10.2); CARBON DIOXIDE 25 mmol/L (22-29); CHLORIDE 96 mmol/L (98-107); CHOL/HDL RATIO 4.9 (3.9-4.7); CHOLESTEROL 153 MD/DL (0-199); CREATININE, SERUM 0.95 mg/dL (0.72-1.25); EST GLOMERULAR FILTRATION RATE > 60 ML/MIN (60-); GLUCOSE 98 mg/dL (74-118); HDL CHOLESTEROL 31 MG/DL (40-60); LDL CHOLESTEROL 104 MG/DL (60-130); POTASSIUM 3.8 mmol/L (3.5-5.1); SODIUM 128 mmol/L (136-145); TRIGLYCERIDES 88 MG/DL (0-149)
[2020-02-15 08:22] LABS: CREATINE KINASE MB 1.3 ng/mL (0-5.0)
[2020-02-15] MEDS: ASPIRIN 81 MG ENTERIC COATED PO SCH (08:22)
--- NOTE | 2020-02-15 13:05 | Diagnostic Imaging Report ---
EXAMINATION: CT of the abdomen and pelvis with contrast. TECHNIQUE: Spiral CT images of the abdomen and pelvis were performed from the lung bases to the lesser trochanters after the intravenous administration of 100 cc of Isovue 370 and the oral administration of water. Coronal and sagittal reformatted images were obtained. COMPARISON: None. CLINICAL HISTORY:Abdominal pain, vomiting and hiccups for 2 days DISCUSSION: ABDOMEN/PELVIS: LOWER THORAX:Lung bases are grossly clear. Atherosclerotic calcification of the coronary arteries and thoracic aorta. HEPATOBILIARY: No focal hepatic lesions. No intra or extrahepatic biliary ductal dilation. GALLBLADDER: Radiopaque stones in the gallbladder lumen. No wall thickening. SPLEEN: No splenomegaly. PANCREAS: No focal masses or ductal dilatation. Mild to moderate atrophy. ADRENALS: No adrenal nodules. KIDNEYS/URETERS: No renal or ureteral calculi, hydronephrosis or obstruction. No solid enhancing masses. PELVIC ORGANS/BLADDER: Bladder is unremarkable, without focal lesions or wall thickening. Enlarged prostate, with dystrophic calcifications. PERITONEUM/RETROPERITONEUM: No free air or fluid. LYMPH NODES: No intra-abdominal, retroperitoneal, pelvic or inguinal lymphadenopathy. VESSELS: Moderate to marked atherosclerotic calcification of the abdominal aorta, with moderate soft plaque in the infrarenal portion, causing approximately 25% luminal reduction (series 2, image 32). Prominent atherosclerotic plaque at the origin of the celiac trunk and right renal artery. Vessels remain patent. Portal, superior mesenteric and splenic veins are patent. GI TRACT: No bowel dilation or evidence of obstruction. No pericolonic inflammatory changes. No wall thickening. Stomach is unremarkable. BONES AND SOFT TISSUE: No aggressive lytic or suspicious focal sclerotic lesions. Degenerative disks in the lower thoracic and lumbosacral spine, predominantly at L2-L3. Facet hypertrophy L4-L5 and L5-S1. Mild canal stenosis at L5. Soft tissues are grossly unremarkable. IMPRESSION: 1. No acute intrapelvic abnormalities. No bowel dilation or evidence of obstruction. 2. Cholelithiasis without evidence of cholecystitis. Signed by: Dr. Colt Flanagan M.D. on 02/15/2020 1:01 PM
--- NOTE | 2020-02-15 14:02 | History and Physical ---
REASON FOR ADMISSION: This is a 79-year-old gentleman comes into the ER with feeling of uneasiness, weakness, and hiccups with nausea, but not able to throw up. HISTORY OF PRESENTING ILLNESS: Mr. Sauceda with history of atrial fibrillation, hypertension, hyperlipidemia, and diabetes mellitus, who is in his usual state of health until the patient started complaining of nausea the night before admission, hiccups throughout the night. The patient has a history of shortness of breath for the last couple of months. The patient came in the car, was admitted to the hospital for hypoglycemia of 50s. Otherwise, the patient has generalized feelings of not well at all. PAST MEDICAL HISTORY: The patient has history of hypertension, history of hyperlipidemia, history of diabetes mellitus, history of atrial fibrillation, and history of coronary artery disease. MEDICATIONS: He takes at home are: 1. Apixaban 5 mg twice a day. 2. Atorvastatin 10 mg at nighttime. 3. Clopidogrel 75 mg daily. 4. Glimepiride 2 mg daily. 5. Metformin 500 mg twice a day. 6. Metoprolol 75 mg b.i.d. SOCIAL HISTORY: No EtOH, no IV drug abuse, and no history of smoking either. PAST SURGICAL HISTORY: Has a heart stent placed by . The patient had a stent in 2017. Other surgical history included appendectomy and knee replacement. 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 REVIEW OF SYSTEMS: Negative for chest pain. Positive for shortness of breath. Positive for nausea. Positive for constant hiccups. Positive for some epigastric pain. Positive for fatigue; generalized well-being, being disturbed; and no rectal bleeding. No hematochezia. No hematemesis. No history suggestive of contact with TB. ALLERGIES: ALLERGIC TO PENICILLIN, CHLORPHENIRAMINE, AND DEXTROMETHORPHAN. FAMILY HISTORY: Noncontributory. PHYSICAL EXAMINATION: VITAL SIGNS: On arrival, the patient's blood pressure was 137/62, respirations of 18, pulse of 52, temperature is 97.9, and pulse oximetry of 100% on room air. HEENT: Normocephalic, atraumatic. Pupils are reactive. CVS: S1, S2, normal. Regular rate and rhythm right now. ABDOMEN: Soft. Slight tenderness in epigastric area. LUNGS: Good air entry into all lung carr. EXTREMITIES: No clubbing, no cyanosis, and/or no edema. MUSCULOSKELETAL: Good range of motion. NEUROLOGIC: Alert and oriented x3. No sensory or motor deficits noted. LABORATORY DATA: Initial white count is 8.02, hemoglobin of 12.9, and hematocrit of 40.2. BUN of 16, creatinine of 1.15, and glucose is 55, and sodium is low at 130. Urine essentially negative. IMAGING DATA: Chest x-ray, portable chest x-ray was done, shows no free air under the diaphragm, no acute thoracic abnormalities. EKG, sinus deisi at 40, T-wave inversions of V1, V2 and V3. ASSESSMENT: The patient was admitted to the hospital for: 1. Hypoglycemia. 2. Rule out acute coronary syndrome with a history of coronary artery disease. 3. Hyperlipidemia. 4. Atrial fibrillation. 5. Diabetes mellitus. PLAN: At this time, will be to rule the patient out laboratory values. Troponin two sets have been negative. CK has been good and MB has been good too. AST and ALT slightly elevated at 48 and 64, waiting for today's value. Plan would be to continue monitoring, rule out again cardiac disease. We are going to do CT of the abdomen to rule out abdominal pathology leading to his nausea and vomiting and also intractable hiccups. Initial chest x-ray showed no air under the diaphragm, and CT might delineate this better. Further recommendation per clinical course. We will continue to monitor the patient. Restart Apixaban and Plavix and also do insulin sliding scale. For his hyponatremia, check his sodium again today. Further recommendation per clinical course. MD CHERYLE DominguezJ/MODL /[id number]
[2020-02-15] MEDS ORDERED: DEXTROSE 50% SYRINGE 50 ML IV PRN (15:30)
[2020-02-15] MEDS ORDERED: SODIUM CHLORIDE 0.9% 1000ML 1,000 ML ONE (15:37)
[2020-02-15] MEDS: SODIUM CHLORIDE 0.9% 1000ML 1,000 ML IV SCH (15:38)
--- NOTE | 2020-02-15 16:30 | NUR ---
Pt received from [facility]1 at this time. Pt is aox3 and able to verbalize needs. Denies any pain at this time. Pt is on room air at this time. Denies any shortness of breath.
[2020-02-15] MEDS: INSULIN LISPRO 100 UNIT/1 ML 3ML VIAL SQ SCH ×2 (18:31→19:53)
[2020-02-15] MEDS: SODIUM CHLORIDE 1 GM TAB PO SCH (18:33)
[2020-02-15] MEDS: APIXABAN 5 MG TABLET PO SCH (18:33)
[2020-02-15] MEDS ORDERED: SODIUM CHLORIDE 0.9% 50ML 50 ML ONE (19:18)
[2020-02-15] MEDS ORDERED: IOPAMIDOL 370 MG/ML 200 ML INFUS..BTL INJ ONE (19:19)
--- NOTE | 2020-02-15 20:11 | NUR ---
Resumed care of patient. Patient awake and resting in bed, no s/s of distress at this time. Vital signs stable. All safety measures in place. Will continue to monitor.
[2020-02-16] VITALS (8 sets, daily range): BP systolic 101–164; BP diastolic 47–86
[2020-02-16] MEDS: INSULIN LISPRO 100 UNIT/1 ML 3ML VIAL SQ SCH ×4 (00:30→16:30)
[2020-02-16 04:22] LABS: BASOPHILS % 0.4 % (0.0-1.0); EOSINOPHILS # (AUTO) 0.1 (0.0-0.4); EOSINOPHILS % 1.3 % (0.0-6.0); HEMATOCRIT 34.7 % (38.2-49.6); HEMOGLOBIN 11.6 g/dL (14.0-18.0); LYMPHOCYTES # (AUTO) 1.2 (1.0-3.2); LYMPHOCYTES % 26.2 % (18.0-39.1); MEAN CORPUSCULAR HEMOGLOBIN 29.1 pg (28-32); MEAN CORPUSCULAR HGB CONC 33.4 g/dL (31-35); MEAN CORPUSCULAR VOLUME 87.2 fL (81-99); MONOCYTES # (AUTO) 0.5 (0.2-0.8); MONOCYTES % 10.5 % (4.4-11.3); NEUTROPHILS # (AUTO) 2.8 (2.1-6.9); NEUTROPHILS % 60.5 % (38.7-80.0); PLATELET COUNT 182 x10e3/uL (140-360); RED BLOOD COUNT 3.98 x10e6/uL (4.3-5.7); RED CELL DISTRIBUTION WIDTH 16.4 % (11.7-14.4)
[2020-02-16 04:36] LABS: ALANINE AMINOTRANSFERASE 49 IU/L (0-55); ALBUMIN/GLOBULIN RATIO 0.9 (0.8-2.0); ALKALINE PHOSPHATASE 80 IU/L (40-150); BLOOD UREA NITROGEN 9 mg/dL (7-26); BUN/CREATININE RATIO 11 (6-25); CALCIUM 8.1 mg/dL (8.4-10.2); CARBON DIOXIDE 22 mmol/L (22-29); CHLORIDE 98 mmol/L (98-107); CREATININE, SERUM 0.83 mg/dL (0.72-1.25); EST GLOMERULAR FILTRATION RATE > 60 ML/MIN (60-); GLUCOSE 92 mg/dL (74-118); SODIUM 129 mmol/L (136-145)
[2020-02-16] MEDS: SODIUM CHLORIDE 0.9% 1000ML 1,000 ML IV SCH ×2 (06:11→21:30)
--- NOTE | 2020-02-16 06:20 | NUR ---
Patient resting quietly in bed, respirations even and unlabored on room air, vital signs stable, no s/s of distress at this time. All safety measures in place. Attempted to place call to nuclear medicine to confirm time for HIDA scan this morning. No answer received. Patient has been NPO since 4AM and is aware of plan of care.
[2020-02-16] MEDS: CLOPIDOGREL BISULFATE 75 MG TAB PO SCH (10:18)
[2020-02-16] MEDS: ASPIRIN 81 MG ENTERIC COATED PO SCH (10:18)
[2020-02-16] MEDS: APIXABAN 5 MG TABLET PO SCH ×2 (10:18→16:32)
[2020-02-16] MEDS: SODIUM CHLORIDE 1 GM TAB PO SCH ×2 (10:18→16:32)
--- NOTE | 2020-02-16 16:42 | Consultation ---
DATE OF CONSULTATION: HISTORY OF PRESENT ILLNESS: Mr. Sauceda remains in the hospital, weak, but there are no new complaints. The patient is a 79-year-old comes into the emergency room because he has weakness, not feeling well, hiccups and nausea, not able to throw up. The patient who has history of atrial fibrillation, hypertension, hyperlipidemia, and diabetes mellitus. The patient was admitted. His main problem is hiccups. Currently, he is alert and oriented. He is not hypoxemic. 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 The patient as mentioned above is currently alert, oriented, lying in bed comfortably. PAST MEDICAL HISTORY: Hypertension, hyperlipidemia, diabetes mellitus, atrial fibrillation, and coronary artery disease. PAST SURGICAL HISTORY: As above. ALLERGIES: NKA. SOCIAL HISTORY: There is no smoking, drug abuse, or alcohol abuse. FAMILY HISTORY: Hypertension. HOME MEDICATIONS: He is on: 1. Apixaban 5 mg daily. 2. Atorvastatin. 3. Clopidogrel. 4. Metformin. 5. Metoprolol. PHYSICAL EXAMINATION: GENERAL: He is currently alert, oriented, does not seem in acute distress, afebrile. HEENT: He is not icteric. NECK: Supple. CHEST: Clear. ABDOMEN: Soft. LABORATORY DATA: His COVID-19 was positive as mentioned above, but his sodium 129 and potassium 4.0. His white count is 4.66 and hemoglobin 11. He had a CT of the pelvis, which showed no acute pelvic abnormality. He also had a chest x-ray, which showed no acute abnormality. IMPRESSION: Upper respiratory infection with COVID-19, no need for treatment. He continued to be in isolation on home quarantine for 2 weeks. Discussed with the patient, I would not recommend to repeat the PCR in 2 weeks. If he is asymptomatic and doing good, he can go back to work. He can step by the office to get recent work. For hiccups once clinically stable, he is going to have HIDA scan, but he is going to be discharged. He appears negative from Infectious Disease point of view and with the medical management. MD FARIDA Mayorga/AYDEE /[id number]
--- NOTE | 2020-02-16 21:00 | NUR ---
Received pt returning from testing. Pt a/o x4 able to make needs known to staff. Denies pain or discomfort at this time. No s/sx of acute distress noted. Pt resting in bed. Personal items and call light within reach. Bed in low and locked position.
--- NOTE | 2020-02-16 21:18 | Progress Note ---
DATE: SUBJECTIVE: The patient is a 79-year-old gentleman, who came in with chest pain, rule out MA, was found to have COVID-19, put in the COVID floor. The patient also had low sodium of 128. Sodium tablets started. The patient is doing well, fairly good. No chest pain and no shortness of breath; however, has some gallstones, for which ultrasound can be done as an outpatient basis. OBJECTIVE: VITAL SIGNS: Temperature 98.0, pulse 62, blood pressure is 164/60, and pulse 100% on room air. HEENT: Normocephalic, atraumatic. Pupils are reactive. CVS: S1, S2 normal. ABDOMEN: Tender in the right upper quadrant. EXTREMITIES: No clubbing, no cyanosis, no edema. LABORATORY VALUES: Sodium 129, BUN of 9, creatinine of 0.83, and CO2 was 22. Coags normal. Hematology, white count is 4.66, hemoglobin 11.6, hematocrit of 34.7. Serology, again coronavirus detected. ASSESSMENT: Mr. Jovon Sauceda with: 1. COVID-19 positive, doing well. 2. Chest pain, rule out acute coronary syndrome. Troponins have been negative. 3. Hyperlipidemia. 4. Atrial fibrillation. 5. Diabetes mellitus. PLAN: Continue same medications. Troponin trended, but sodium level still low. Continue with salt tablets. We will check the sodium in the morning and can be discharged tomorrow. CT scan yesterday was negative for abdominal pathology. Further recommendation per clinical course, and we will check the sodium tomorrow and possible discharge in the morning. MD LYSSA Dominguez/MODL /[id number]
--- NOTE | 2020-02-16 21:50 | Diagnostic Imaging Report ---
Hepatobiliary Scan with Gallbladder Ejection Fraction Clinical information: 79 M with abdominal pain and vomiting x 3 days Technique: Following intravenous administration of 5.5 millicuries of Tc-99m mebrofenin, dynamic images of the abdomen in the anterior projection were obtained through 22 minutes. Sincalide (CCK analog) 1.7 micrograms was administered intravenously over 30 minutes with additional imaging for determination of gallbladder ejection fraction. Discussion: Perfusion of the liver is normal. Extraction of tracer by the liver parenchyma is normal. Tracer appears promptly within the biliary tract. The gallbladder begins to fill by 14 minutes post injection of tracer and fills adequately. Tracer is seen in the small bowel by 12 minutes. The gallbladder ejection fraction with sincalide is 6% (normal greater than 40%). Impression: 1. Filling of the gallbladder excludes acute cystic duct obstruction/acute cholecystitis. 2. 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 Signed by: Dr. Karolina Cook M.D. on 02/16/2020 9:47 PM
[2020-02-17] VITALS (7 sets, daily range): BP systolic 125–159; BP diastolic 62–86
[2020-02-17 05:37] LABS: BASOPHILS % 0.6 % (0.0-1.0); EOSINOPHILS % 0.6 % (0.0-6.0); HEMATOCRIT 35.2 % (38.2-49.6); HEMOGLOBIN 11.9 g/dL (14.0-18.0); LYMPHOCYTES # (AUTO) 1.2 (1.0-3.2); MEAN CORPUSCULAR HEMOGLOBIN 30.7 pg (28-32); MEAN CORPUSCULAR HGB CONC 33.8 g/dL (31-35); MEAN CORPUSCULAR VOLUME 90.7 fL (81-99); MONOCYTES # (AUTO) 0.6 (0.2-0.8); MONOCYTES % 11.4 % (4.4-11.3); NEUTROPHILS # (AUTO) 3.1 (2.1-6.9); NEUTROPHILS % 62.2 % (38.7-80.0); PLATELET COUNT 183 x10e3/uL (140-360); RED BLOOD COUNT 3.88 x10e6/uL (4.3-5.7); RED CELL DISTRIBUTION WIDTH 16.5 % (11.7-14.4)
[2020-02-17 05:52] LABS: ANION GAP 13.9 mmol/L (8-16); BLOOD UREA NITROGEN 9 mg/dL (7-26); BUN/CREATININE RATIO 11 (6-25); CALCIUM 8.1 mg/dL (8.4-10.2); CARBON DIOXIDE 18 mmol/L (22-29); CHLORIDE 100 mmol/L (98-107); CREATININE, SERUM 0.85 mg/dL (0.72-1.25); EST GLOMERULAR FILTRATION RATE > 60 ML/MIN (60-); GLUCOSE 137 mg/dL (74-118); POTASSIUM 3.9 mmol/L (3.5-5.1); SODIUM 128 mmol/L (136-145)
[2020-02-17] MEDS: INSULIN LISPRO 100 UNIT/1 ML 3ML VIAL SQ SCH ×4 (07:30→21:52)
--- NOTE | 2020-02-17 08:20 | Progress Note ---
DATE: SUBJECTIVE: A 79-year-old male who comes in with hiccups, still continues to have hiccups. The patient had a HIDA scan done which shows 6% of EF, but patient still continues to have abdominal tenderness and pain. COVID was positive and the patient was transferred to coronavirus floor. OBJECTIVE: VITAL SIGNS: Temperature is 98.3, pulse of 87, respirations 17, blood pressure is 125/62, pulse oximetry 98%. HEENT: Normocephalic, atraumatic. Pupils are reactive to light and accommodation. CVS: S1 and S2 normal. Regular rate and rhythm. ABDOMEN: Tender at the epigastrium. EXTREMITIES: No clubbing, no cyanosis, no edema. LABORATORY VALUES: The patient's white count is 4.99, hemoglobin of 11.9, hematocrit 35.2. Chemistry shows sodium of 128, BUN of 9, creatinine 0.85, glucose of 137. ASSESSMENT AND PLAN: Mr. Jovon Sauceda with: 1. Coronavirus disease-19 positive, doing well. 2. Acalculous cholecystitis: Surgical consult will be done. The patient's HIDA scan showed low ejection fraction. 3. 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 We will continue monitoring, atrial fibrillation, and diabetes mellitus. Continue with current medication. Decision will be made on surgery depending on surgical consult. Further recommendation per clinical course. We will continue to monitor the patient. MD LYSSA Dominguez/MODL /[id number]
[2020-02-17] MEDS: SODIUM CHLORIDE 1 GM TAB PO SCH ×2 (09:11→16:47)
[2020-02-17] MEDS: CLOPIDOGREL BISULFATE 75 MG TAB PO SCH (09:11)
[2020-02-17] MEDS: ASPIRIN 81 MG ENTERIC COATED PO SCH (09:11)
[2020-02-17] MEDS: APIXABAN 5 MG TABLET PO SCH ×2 (09:11→16:47)
[2020-02-17] MEDS: SODIUM CHLORIDE 0.9% 1000ML 1,000 ML IV SCH (17:00)
[2020-02-17] MEDS: ACETAMINOPHEN 325 MG TAB PO PRN (23:00)
[2020-02-18] VITALS (9 sets, daily range): BP systolic 100–159; BP diastolic 52–92
[2020-02-18 05:36] LABS: BASOPHILS % 0.7 % (0.0-1.0); EOSINOPHILS # (AUTO) 0.1 (0.0-0.4); EOSINOPHILS % 1.2 % (0.0-6.0); HEMATOCRIT 35.4 % (38.2-49.6); HEMOGLOBIN 11.9 g/dL (14.0-18.0); LYMPHOCYTES # (AUTO) 1.2 (1.0-3.2); LYMPHOCYTES % 29.4 % (18.0-39.1); MEAN CORPUSCULAR HEMOGLOBIN 29.8 pg (28-32); MEAN CORPUSCULAR HGB CONC 33.6 g/dL (31-35); MEAN CORPUSCULAR VOLUME 88.7 fL (81-99); MONOCYTES # (AUTO) 0.5 (0.2-0.8); MONOCYTES % 12.4 % (4.4-11.3); NEUTROPHILS # (AUTO) 2.3 (2.1-6.9); NEUTROPHILS % 55.1 % (38.7-80.0); PLATELET COUNT 177 x10e3/uL (140-360); RED BLOOD COUNT 3.99 x10e6/uL (4.3-5.7); RED CELL DISTRIBUTION WIDTH 16.6 % (11.7-14.4)
[2020-02-18 05:51] LABS: ANION GAP 12.8 mmol/L (8-16); BLOOD UREA NITROGEN 5 mg/dL (7-26); BUN/CREATININE RATIO 6 (6-25); CALCIUM 7.9 mg/dL (8.4-10.2); CARBON DIOXIDE 19 mmol/L (22-29); CHLORIDE 103 mmol/L (98-107); CREATININE, SERUM 0.79 mg/dL (0.72-1.25); EST GLOMERULAR FILTRATION RATE > 60 ML/MIN (60-); GLUCOSE 123 mg/dL (74-118); POTASSIUM 3.8 mmol/L (3.5-5.1); SODIUM 131 mmol/L (136-145)
--- NOTE | 2020-02-18 06:59 | NUR ---
Call placed to dr. thurston office for referral. Spoke with Ekaterina
[2020-02-18] MEDS: INSULIN LISPRO 100 UNIT/1 ML 3ML VIAL SQ SCH ×4 (07:30→21:00)
--- NOTE | 2020-02-18 07:31 | NUR ---
infectious disease progress note 02/18/2020 Patient is seen and examined Chart reviewed medication list reviewed lab data reviewed discussed with the medical team A 79-year-old male who comes in with hiccups, still continues to have hiccups. The patient had a HIDA scan done which shows 6% of EF, but patient still continues to have abdominal tenderness and pain. COVID was positive and the patient was transferred to coronavirus floor. OBJECTIVE: VITAL SIGNS: Temperature is 98.3, pulse of 87, respirations 17, blood pressure is 125/62, pulse oximetry 98%. HEENT: Normocephalic, atraumatic. Pupils are reactive to light and accommodation. CVS: S1 and S2 normal. Regular rate and rhythm. ABDOMEN: Tender at the epigastrium. EXTREMITIES: No clubbing, no cyanosis, no edema. LABORATORY VALUES: The patient's white count is 4.99, hemoglobin of 11.9, hematocrit 35.2. Chemistry shows sodium of 128, BUN of 9, creatinine 0.85, glucose of 137. ASSESSMENT AND PLAN: 1. Coronavirus disease-19 positive, doing well.upper respirator infection continue droplet isolation no need for treatment 2. Acalculous cholecystitis: Surgical consult . The patient's HIDA scan NOTED SURGERY TODAY showed low ejection fraction. patient to be discharged home AFTER SURGERYIF STABLE 3. 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 We will continue monitoring, atrial fibrillation, and diabetes mellitus.
[2020-02-18] MEDS: ASPIRIN 81 MG ENTERIC COATED PO SCH (09:00)
[2020-02-18] MEDS: SODIUM CHLORIDE 1 GM TAB PO SCH ×2 (09:23→18:25)
[2020-02-18] MEDS: SODIUM CHLORIDE 0.9% 1000ML 1,000 ML IV SCH ×2 (12:30→18:26)
[2020-02-18] MEDS ORDERED: BUPIVACAINE HCL 0.5% INJ 30 ML VIAL INJ ONE (14:34)
[2020-02-18] MEDS ORDERED: FENTANYL CITRATE/PF 100MCG/2 ML INJ ONE (16:17)
[2020-02-18] MEDS ORDERED: HYDROMORPHONE 1MG/1ML INJ ONE (16:17)
[2020-02-18] MEDS ORDERED: ONDANSETRON HCL INJ 2MG/ML 2ML 2 MG/ML VIAL ONE ×2 (16:18→21:29)
[2020-02-18] MEDS ORDERED: METOCLOPRAMIDE HCL 10 MG/2ML VIAL ONE (16:18)
[2020-02-18] MEDS ORDERED: SUGAMMADEX SODIUM 200 MG/2 ML VIAL IV ONE (16:27)
[2020-02-18] MEDS ORDERED: ONDANSETRON HCL INJ 2MG/ML 2ML 2 MG/ML VIAL IV PRN (16:30)
--- NOTE | 2020-02-18 17:40 | NUR ---
Back from procedure. AAOX3 to time, person, place. Respirations even and unlabored. Trochar sites clean, dry, and intact.
[2020-02-18] MEDS: HYDROCODONE/APAP 5MG-325MG TAB PO PRN (18:00)
--- NOTE | 2020-02-18 18:43 | Operative Report ---
DATE OF PROCEDURE: 02/18/2020 SURGEON: Kiran Pollack MD PREOPERATIVE DIAGNOSES: [id number] cholecystitis, cholelithiasis. POSTOPERATIVE DIAGNOSES: Tdexl-jv-oopsgod cholecystitis, cholelithiasis. PROCEDURES: Diagnostic laparoscopy, laparoscopic cholecystectomy PILOT CAN ROUTER: None. ANESTHESIA: General endotracheal. INDICATIONS AND FINDINGS: The patient is a 79-year-old male, who admitted to the hospital, he comes to the hospital with complaints of abdominal pain and right upper quadrant, particularly after eating. Workup revealed gallstones. At Surgery, based on the gallbladder that was distended, partially intrahepatic, this considerable fibrosis containing multiple stones. Cystic duct was about 3 mm in diameter. Common bile duct was about 5 mm in diameter. Liver, stomach appeared normal. There were adhesions to lower abdomen from previous surgery. TECHNIQUE: After adequate general endotracheal anesthesia, the patient is in supine position, the abdomen was prepped and draped in a sterile fashion with ChloraPrep solution in the epigastrium to the right of the midline away from the area of the previous surgery. Skin and subcutaneous tissue were infiltrated with 0.5% Marcaine. Transverse incision was made. Abdominal wall was elevated and Veress needle was introduced. Pneumoperitoneum was then created. A 10 mm trocar and cannula were then passed through this wound. Laparoscopic camera was introduced. Initial laparoscopy revealed the liver to be normal. There were adhesions in the lower abdomen in the midline involving omentum to the right of the midline and away from the adhesions. Skin and subcutaneous tissue were infiltrated with 0.5% Marcaine. Transverse incision was made and 10 mm trocar and cannula were placed under direct vision. Laparoscopic camera was then changed to this cannula site. Two 5 mm trocars and cannulas were placed in right upper quadrant under direct vision. Gallbladder was noted to be somewhat intrahepatic and somewhat fibrotic directly over the fundus. Fundus was grasped, retracted superiorly. The neck of the gallbladder was grasped, retracted laterally. Peritoneum over the neck of the gallbladder was incised. The gallbladder cystic duct junction was dissected free. Cystic artery was also dissected free. Cystic artery was divided between hemoclips close to the gallbladder. Cystic duct was also divided between hemoclips with three clips being left on the common bile duct side. The gallbladder was dissected free from the liver using scissors and electrocautery. Once it was completely free, it was placed into an Endopouch and brought through the epigastric cannula. There were multiple stones palpable. Gallbladder bed was inspected for hemostasis. There was one area there was some bleeding, which was controlled with electrocautery and also some Surgicel gauze and hemostasis was achieved. The peritoneal cavity was irrigated with saline. All fluid aspirated and inspected for hemostasis, which was seen to be adequate. Instruments and cannulas were then removed. Pneumoperitoneum was evacuated. Wounds were then closed. Fascia in the umbilical and epigastric wound was closed with 0 Vicryl. Skin to all wounds closed with archana. Sterile dressings applied to each wound. The patient tolerated the procedure well. Estimated blood loss was 25 mL. There were no complications. All counts were correct. The patient was taken to the recovery room in satisfactory condition. MD FLORENTIN PhillipsG/MODL /[id number] cc: MD Wilfredo Mayorga MD Kent Schnell, MD
--- NOTE | 2020-02-18 19:29 | NUR ---
Report given to oncoming nurse of patient's status. Resting in bed. NO s/s of acute distress noted. Trochar sites clean, dry, and intact. Side rails upx2, call light within reach, bed alarm on.
--- NOTE | 2020-02-18 20:08 | Consultation ---
DATE OF CONSULTATION: 02/18/2020 REFERRING PHYSICIANS: 1. Wiflredo Carvajal MD. 2. Gary Beard MD. HISTORY OF PRESENT ILLNESS: The patient is a 79-year-old male, who presents to the hospital with complaints of some shortness of breath and hiccups, and also abdominal pain. The patient is better and has evaluated, found to have gallstones. The patient says he has right upper quadrant abdominal pain, particularly after eating. PAST MEDICAL HISTORY: Significant for hypertension, hyperlipidemia, diabetes, atrial fibrillation. MEDICATIONS: He has been on Eliquis, this has been held for last several days. Other medications were Lipitor, Plavix, glimepiride, metformin, and metoprolol. PAST SURGICAL HISTORY: Previous surgery includes coronary stent, previous appendectomy, knee replacement, previous carotid endarterectomy. ALLERGIES: PENICILLIN, CHLORPHENIRAMINE, AND DEXTROMETHORPHAN. FAMILY HISTORY: Noncontributory. SOCIAL HISTORY: The patient does not smoke cigarettes or drink alcohol. REVIEW OF SYSTEMS: He has not had any fever. He has no shortness of breath or cough at this time. He has had hiccups, this is better. PHYSICAL EXAMINATION: GENERAL: The patient is awake and alert, in no distress. VITAL SIGNS: Normal. HEENT: Sclerae is not icteric. NECK: Has no masses. LUNGS: Equal breath sounds are clear bilaterally. CARDIAC: Regular rate and rhythm with no murmur. ABDOMEN: Tender in the epigastric right upper quadrant was mild. There is no mass. No distention. No organomegaly. There is a healed midline wound. EXTREMITIES: Have no edema. NEUROLOGIC: Grossly intact. LABORATORY DATA: White blood cell count today is 4.1, hemoglobin and hematocrit are normal. Chemistries were essentially normal. ASSESSMENT: A 79-year-old male with findings of gallstones and excess symptoms suggestive of fpmib-ud-aekhohc cholecystitis with cholelithiasis. Options were discussed with the patient. He wished to proceed with surgery. PLAN: Laparoscopic cholecystectomy. Procedure was explained to the patient including risks, benefits, and alternatives. He understands. He has had the opportunity to ask questions. Thank you for asking me to see Mr. Sauceda. MD NOLAN Phillips/ABHAYL /[id number]
[2020-02-18] MEDS ORDERED: PROPOFOL IV EMULSION 10 MG/ML 20 ML VIAL ONE (21:29)
[2020-02-18] MEDS ORDERED: LABETALOL HCL 5 MG/ML 20ML VIAL ONE (21:29)
[2020-02-18] MEDS ORDERED: ROCURONIUM BROMIDE 10 MG/ML 5ML VIAL IV ONE (21:29)
[2020-02-18] MEDS ORDERED: ETOMIDATE 2 MG/ML 10 ML INJ IV ONE (21:29)
[2020-02-18] MEDS ORDERED: PHENYLEPHRINE HCL 1% 10 MG/ML VIAL ONE (21:29)
[2020-02-18] MEDS ORDERED: SEVOFLURANE INHAL SOLN 250 ML PEN BTL ONE (21:29)
[2020-02-19] VITALS (8 sets, daily range): BP systolic 98–160; BP diastolic 51–78
[2020-02-19] MEDS: HYDROMORPHONE 1MG/1ML INJ IV PRN ×2 (02:00→19:45)
[2020-02-19] MEDS: SODIUM CHLORIDE 0.9% 1000ML 1,000 ML IV SCH ×2 (04:28→18:00)
--- NOTE | 2020-02-19 07:00 | NUR ---
RECEIVED REPORT FROM OFF GOING NIGHT NURSE. PATIENT IN STABLE CONDITION, NO S/S OF DISTRESS NOTED. IV FLUIDS INFUSING, SITE ASYMPTOMATIC AND PATENT, TRANSPARENT DRESSING C/D/I. BED IN LOWEST POSITION AND LOCKED. CALL LIGHT WITHIN REACH.
[2020-02-19] MEDS: INSULIN LISPRO 100 UNIT/1 ML 3ML VIAL SQ SCH ×4 (07:30→20:40)
[2020-02-19] MEDS: ASPIRIN 81 MG ENTERIC COATED PO SCH (10:18)
[2020-02-19] MEDS: SODIUM CHLORIDE 1 GM TAB PO SCH ×2 (10:18→17:23)
[2020-02-19] MEDS: ACETAMINOPHEN 325 MG TAB PO PRN ×2 (11:30→20:41)
--- NOTE | 2020-02-19 18:55 | NUR ---
COMPLETED SHIFT REPORT WITH ON COMING NIGHT NURSE. PATIENT STABLE, NO S/S OF DISTRESS NOTED. TELEMETRY APPLIED. IV FLUIDS INFUSING, SITE ASYMPTOMATIC, TRANSPARENT DRESSING C/D/I. BED IN LOWEST POSITION AND LOCKED. CALL LIGHT WITHIN REACH.
--- NOTE | 2020-02-19 19:20 | NUR ---
SHIFT REPORT RECEIVED FROM MORNING NURSE. PT ALERT AND ORIENTED TO NAME, LYING IN BED HOB 30 DEGREES. DENIES PAIN AT THIS TIME. BED LOW AND LOCKED.
[2020-02-20] VITALS (10 sets, daily range): BP systolic 113–146; BP diastolic 60–81
[2020-02-20] MEDS: SODIUM CHLORIDE 0.9% 1000ML 1,000 ML IV SCH ×3 (03:00→17:32)
[2020-02-20] MEDS: HYDROMORPHONE 1MG/1ML INJ IV PRN ×4 (03:30→20:37)
[2020-02-20 06:08] LABS: BASOPHILS % 0.2 % (0.0-1.0); EOSINOPHILS % 0.8 % (0.0-6.0); HEMATOCRIT 30.2 % (38.2-49.6); HEMOGLOBIN 9.9 g/dL (14.0-18.0); LYMPHOCYTES # (AUTO) 1.2 (1.0-3.2); LYMPHOCYTES % 24.3 % (18.0-39.1); MEAN CORPUSCULAR HGB CONC 32.8 g/dL (31-35); MEAN CORPUSCULAR VOLUME 91.5 fL (81-99); MONOCYTES # (AUTO) 0.4 (0.2-0.8); MONOCYTES % 7.4 % (4.4-11.3); NEUTROPHILS # (AUTO) 3.4 (2.1-6.9); NEUTROPHILS % 66.7 % (38.7-80.0); PLATELET COUNT 164 x10e3/uL (140-360); RED CELL DISTRIBUTION WIDTH 16.5 % (11.7-14.4)
[2020-02-20 06:37] LABS: ALANINE AMINOTRANSFERASE 64 IU/L (0-55); ALBUMIN 2.3 g/dL (3.5-5.0); ALBUMIN/GLOBULIN RATIO 0.7 (0.8-2.0); ALKALINE PHOSPHATASE 77 IU/L (40-150); ANION GAP 10.7 mmol/L (8-16); BLOOD UREA NITROGEN 5 mg/dL (7-26); BUN/CREATININE RATIO 7 (6-25); CALCIUM 7.3 mg/dL (8.4-10.2); CARBON DIOXIDE 21 mmol/L (22-29); CHLORIDE 106 mmol/L (98-107); CREATININE, SERUM 0.69 mg/dL (0.72-1.25); EST GLOMERULAR FILTRATION RATE > 60 ML/MIN (60-); GLUCOSE 120 mg/dL (74-118); MAGNESIUM 1.5 MG/DL (1.3-2.1); POTASSIUM 3.7 mmol/L (3.5-5.1); SODIUM 134 mmol/L (136-145)
[2020-02-20] MEDS: INSULIN LISPRO 100 UNIT/1 ML 3ML VIAL SQ SCH ×4 (07:30→20:55)
[2020-02-20] MEDS: SODIUM CHLORIDE 1 GM TAB PO SCH ×2 (09:36→17:11)
[2020-02-20] MEDS: ASPIRIN 81 MG ENTERIC COATED PO SCH (09:36)
[2020-02-20] MEDS: CHLORPROMAZINE HCL INJ 25 MG/ML AMP IM PRN (14:00)
--- NOTE | 2020-02-20 15:13 | Diagnostic Imaging Report ---
X-ray chest AP portable Comparison: 02/14/2020 History: Fever Findings: Central airways unremarkable. Prominent aorta. No pleural effusion. No pneumothorax. Opacity in the right upper lung zone. No acute changes in the skeletal structures are upper abdomen. Impression: Possible right upper lobe pneumonia. Signed by: Baldo Tolentino MD on 02/20/2020 3:09 PM
[2020-02-20] MEDS: MEROPENEM 1GM 100 ML IV SCH ×2 (15:40→20:36)
--- NOTE | 2020-02-20 19:40 | NUR ---
COMPLETED SHIFT REPORT WITH OFF GOING NIGHT NURSE TAMIKA. PATIENT STABLE, NO S/S OF DISTRESS NOTED. TELEMETRY IN PLACE. IV FLUIDS INFUSING @100CC/HR RLF, PATENT NO S/SX OF INFILTRATION NOTED, TRANSPARENT DRESSING C/D/I. BED IN LOWEST POSITION AND LOCKED. CALL LIGHT WITHIN REACH. PT DENIES PAIN, FEBRILE, PRN TYLENOL GIVEN FOR INCREASE COMFORT
[2020-02-20] MEDS: ACETAMINOPHEN 325 MG TAB PO PRN (20:44)
[2020-02-21] VITALS (9 sets, daily range): BP systolic 110–188; BP diastolic 50–86
[2020-02-21] MEDS: CHLORPROMAZINE HCL INJ 25 MG/ML AMP IM PRN (01:06)
--- NOTE | 2020-02-21 02:00 | NUR ---
TEMP REMAIN ELEVATED PRN TYLENOL GIVEN AGAIN PO WILL CONT TO MONITOR
[2020-02-21] MEDS: SODIUM CHLORIDE 0.9% 1000ML 1,000 ML IV SCH ×2 (03:04→13:11)
[2020-02-21] MEDS: ACETAMINOPHEN 325 MG TAB PO PRN ×2 (03:05→20:28)
[2020-02-21] MEDS: MEROPENEM 1GM 100 ML IV SCH ×3 (06:02→20:26)
[2020-02-21] MEDS: INSULIN LISPRO 100 UNIT/1 ML 3ML VIAL SQ SCH ×4 (07:30→21:55)
[2020-02-21] MEDS: SODIUM CHLORIDE 1 GM TAB PO SCH ×2 (09:26→17:19)
[2020-02-21] MEDS: ASPIRIN 81 MG ENTERIC COATED PO SCH (09:26)
--- NOTE | 2020-02-21 10:15 | NUR ---
SPOKE WITH PATIENT ABOUT INCENTIVE SPIROMETER AND LUNG HEALTH, AGAIN ASKED PATIENT TO GET UP OUT OF THE BED AND TO MOVE AROUND MORE. PATIENT HAS AN EXCUSE EVERY TIME (ABD PAIN, CUFFS ON LEGS, TO TIRED, ETC.) AND SO I TAUGHT HIM PULMONARY TOILET, SPLINTING, AND INCENTIVE SPIROMETER. I ALSO DID TEACHING WITH HIS PHONETICALLY TO HELP WITH PATIENTS COMPLIANCE. STATES SHE WILL ALSO TALK TO HIM ABOUT KEEPING UP WITH IS AND PULMONARY TOILET
--- NOTE | 2020-02-21 12:09 | Progress Note ---
DATE: SUBJECTIVE: The patient is a 79-year-old male, who came in with upper epigastric pain and hiccups. The patient's hiccups are better, status post laparoscopic cholecystectomy. The patient was found to have COVID-19, transferred to COVID floor. Currently short of breath. Has developed some fevers. Overnight, has been using incentive spirometry. OBJECTIVE: VITAL SIGNS: T-max of 100.1, pulse of 87, respirations of 18, blood pressure is 110/64, pulse oximetry of 97% on room air. HEENT: Normocephalic and atraumatic. The patient is still weak. CVS: S1 and S2. Normal rate and rhythm. ABDOMEN: Soft, nontender, nondistended. Trocar sites normal. EXTREMITIES: No clubbing. No cyanosis. No edema. LABORATORY VALUES: White count is 5.03, hemoglobin of 9.9, hematocrit 30.2. Chemistries; sodium 134, potassium of 3.7, BUN of 5, creatinine 0.69, glucose of 152. ASSESSMENT: Mr. Jovon Sauceda is status post laparoscopic cholecystectomy with still ongoing fevers. Continue with current medications. The patient is on meropenem q.8 hours as an often as needed. Continue mobilizing the patient. Incentive spirometry to be encouraged. The patient has to get a PET and move around. Discharge planning in 1 to 2 days and also we will repeat the CBC and BMP tomorrow. Further recommendation per clinical course. MD LYSSA Dominguez/ABHAYL /[id number]
--- NOTE | 2020-02-21 14:55 | NUR ---
Nutrition Screen Note RD Recommendation for Physician: -Recommend to continue current diet as ordered Plan of Care: RD following, monitoring for tolerance and adequacy Nutrition reason for involvement: Length of stay Primary Diagnose(s): hiccups, hypoglycemia, sinus bradycardia PMH: hypertension, hyperlipidemia, diabetes, afib, coronary artery disease Ht: 72 in Wt:172 lb BMI: 23.3 kg/m2 IBW:[address] Assessment: (02/21/20) Chart reviewed. Labs and meds reviewed. Pt is a 79 year old male admitted with hiccups, hypoglycemia, and sinus bradycardia. Pt is COVID-19+; therefore, unable to enter room due to droplet isolation precautions. Attempted to call pt over the phone, but he did not answer. It is recorded that pt has been consuming 75-100% of meals. Pts last recorded weight was 188 lbs in January 2019. Pt currently has a weight of 172 lbs in chart. If accurate, this would be an 8% weight loss in 1 year which is considered to be non-significant weight loss. Will continue to monitor Current Diet: 1800 ADA Malnutrition Evaluation (02/21/20) The patient does not meet criteria for a specified degree of malnutrition at this time. Will re-evaluate at follow-up as appropriate. Diet Education Needs Assessment: RD is available for diet education as needed Nutrition Care Level: low Signed: Maria Houser RD, LD
[2020-02-21] MEDS: HYDROCODONE/APAP 5MG-325MG TAB PO PRN (18:13)
[2020-02-22] VITALS (16 sets, daily range): BP systolic 112–163; BP diastolic 56–82
[2020-02-22] MEDS: SODIUM CHLORIDE 0.9% 1000ML 1,000 ML IV SCH ×3 (01:04→16:43)
[2020-02-22] MEDS: ACETAMINOPHEN 325 MG TAB PO PRN ×2 (02:00→21:13)
[2020-02-22] MEDS: MEROPENEM 1GM 100 ML IV SCH ×3 (05:36→21:12)
[2020-02-22 05:43] LABS: BASOPHILS % 0.2 % (0.0-1.0); EOSINOPHILS # (AUTO) 0.1 (0.0-0.4); EOSINOPHILS % 1.8 % (0.0-6.0); HEMATOCRIT 27.6 % (38.2-49.6); LYMPHOCYTES # (AUTO) 0.7 (1.0-3.2); LYMPHOCYTES % 15.4 % (18.0-39.1); MEAN CORPUSCULAR HEMOGLOBIN 29.1 pg (28-32); MEAN CORPUSCULAR HGB CONC 32.6 g/dL (31-35); MEAN CORPUSCULAR VOLUME 89.3 fL (81-99); MONOCYTES # (AUTO) 0.3 (0.2-0.8); MONOCYTES % 5.7 % (4.4-11.3); NEUTROPHILS # (AUTO) 3.5 (2.1-6.9); PLATELET COUNT 176 x10e3/uL (140-360); RED BLOOD COUNT 3.09 x10e6/uL (4.3-5.7); RED CELL DISTRIBUTION WIDTH 16.2 % (11.7-14.4)
[2020-02-22 06:27] LABS: ANION GAP 9.3 mmol/L (8-16); BLOOD UREA NITROGEN 5 mg/dL (7-26); BUN/CREATININE RATIO 7 (6-25); CALCIUM 7.2 mg/dL (8.4-10.2); CARBON DIOXIDE 22 mmol/L (22-29); CHLORIDE 107 mmol/L (98-107); EST GLOMERULAR FILTRATION RATE > 60 ML/MIN (60-); GLUCOSE 120 mg/dL (74-118); POTASSIUM 3.3 mmol/L (3.5-5.1); SODIUM 135 mmol/L (136-145)
[2020-02-22] MEDS: INSULIN LISPRO 100 UNIT/1 ML 3ML VIAL SQ SCH ×4 (07:30→21:00)
[2020-02-22] MEDS: SODIUM CHLORIDE 1 GM TAB PO SCH ×2 (08:07→16:43)
[2020-02-22] MEDS: ASPIRIN 81 MG ENTERIC COATED PO SCH (08:07)
--- NOTE | 2020-02-22 09:28 | Progress Note ---
DATE: SUBJECTIVE: The patient came in with hiccups and was found to have cholecystitis. The patient underwent a lap choly, currently feeling better. Some shortness of breath noted. OBJECTIVE: VITAL SIGNS: Temperature is 100.4, pulse 60, respirations of 18, blood pressure is 163/58, pulse oximetry of 96% on 10 L of oxygen. HEENT: Normocephalic and atraumatic. Pupils are reactive. CVS: S1 and S2 normal. Regular rate and rhythm. LUNGS: Decreased air entry. ABDOMEN: Soft, nontender, and nondistended. EXTREMITIES: No clubbing, no cyanosis, and/or no edema. LABORATORY STUDIES: Today's white count is 4.54, hemoglobin is 9, hematocrit 27.6. Chemistry shows sodium 135, potassium 3.3, BUN of 5, creatinine 0.70, and calcium 7.2. IMAGING STUDIES: From the 10th possible right upper lobe pneumonia. ASSESSMENT: Mr. Jovon Sauceda with: 1. Pneumonia, coronavirus disease related. The patient is on Merrem right now. White count is stable. 2. Status post laparoscopic cholecystectomy. The patient is asked to move. Physical therapy to continue. Imaging studies, we will go and do another chest x-ray today to review his lung findings. Further recommendation per clinical course. We will continue to monitor the patient. Continue on Merrem and also asked the patient to do incentive spirometry and out of bed. MD LYSSA Dominguez/ABHAYL /[id number]
--- NOTE | 2020-02-22 10:19 | NUR ---
LEFT MS FOR DR. SANTO FOR LOW K, HE RETURNED CALL IMMEDIATELY WITH ORDER TO REPLACE
[2020-02-22] MEDS ORDERED: POTASSIUM CHLORIDE 20 MEQ TAB CR PO NR (10:30)
[2020-02-22] MEDS: HYDROCODONE/APAP 5MG-325MG TAB PO PRN ×2 (10:39→15:16)
--- NOTE | 2020-02-22 11:46 | Diagnostic Imaging Report ---
Examination: Single AP view of the chest. COMPARISON: February 20, 2020 INDICATION: The liver DISCUSSION: Lines/tubes: None. Lungs: Lungs are well inflated, improved from prior. Right upper and left lower lung airspace opacity. Pleura: There is no pleural effusion or pneumothorax. Heart and mediastinum: The heart and the mediastinum are unremarkable. Bones and soft tissues: No acute bony abnormalities. IMPRESSION: 1. Probable multifocal pneumonia Signed by: Dr. Sergio Euceda M.D. on 02/22/2020 11:42 AM
[2020-02-22] MEDS: APIXABAN 5 MG TABLET PO SCH (16:43)
--- NOTE | 2020-02-22 20:00 | NUR ---
REPORT RECEIVED FROM DAYSHIFT EDY LUNDBERG, PATIENT AWAKE ALERT, NO DISTRESS NOTED, REPORTED TO THIS NURSE THAT PT REMAIN AFEBRILE DURING DAYSHIFT, PT ENCOURAGED TO USE IS PER MD ORDER, DEMONSTRATED PROPER USE, ENCOURAGED TO USE IS ONCE EACH HOUR AWAKE, PT COOPERATIVE AND COMPLIANT, PATIENT GIVEN CARE, ROSE-CARE GIVEN, USES URINAL BUT NOTED LARGE AMOUNT OF URINE UNDER BUTTOCK AND BEDDING, NEW BEDDING, AND BED BATH GIVEN, PATIENT NOTED WITH LOW GRADE FEVER, COOLING MEASURES PERFORMED, TOLERATED WELL, CALL LIGHT WITHIN REACH, BED IN LOWEST POSITION, EDUCATED TO USE CALL LIGHT FOR SAFETY
[2020-02-23] VITALS (12 sets, daily range): BP systolic 108–170; BP diastolic 63–77
[2020-02-23] MEDS: ACETAMINOPHEN 325 MG TAB PO PRN (04:00)
[2020-02-23 04:52] LABS: BASOPHILS % 0.2 % (0.0-1.0); EOSINOPHILS # (AUTO) 0.1 (0.0-0.4); EOSINOPHILS % 2.1 % (0.0-6.0); HEMATOCRIT 27.9 % (38.2-49.6); HEMOGLOBIN 9.3 g/dL (14.0-18.0); LYMPHOCYTES # (AUTO) 0.9 (1.0-3.2); MEAN CORPUSCULAR HEMOGLOBIN 29.5 pg (28-32); MEAN CORPUSCULAR HGB CONC 33.3 g/dL (31-35); MEAN CORPUSCULAR VOLUME 88.6 fL (81-99); MONOCYTES # (AUTO) 0.3 (0.2-0.8); MONOCYTES % 5.8 % (4.4-11.3); NEUTROPHILS # (AUTO) 3.5 (2.1-6.9); NEUTROPHILS % 73.3 % (38.7-80.0); PLATELET COUNT 207 x10e3/uL (140-360); RED BLOOD COUNT 3.15 x10e6/uL (4.3-5.7); RED CELL DISTRIBUTION WIDTH 16.2 % (11.7-14.4)
[2020-02-23 05:18] LABS: ALANINE AMINOTRANSFERASE 40 IU/L (0-55); ALBUMIN/GLOBULIN RATIO 0.6 (0.8-2.0); ALKALINE PHOSPHATASE 68 IU/L (40-150); ANION GAP 10.6 mmol/L (8-16); BLOOD UREA NITROGEN 5 mg/dL (7-26); BUN/CREATININE RATIO 8 (6-25); CALCIUM 7.4 mg/dL (8.4-10.2); CARBON DIOXIDE 21 mmol/L (22-29); CHLORIDE 104 mmol/L (98-107); CREATININE, SERUM 0.66 mg/dL (0.72-1.25); EST GLOMERULAR FILTRATION RATE > 60 ML/MIN (60-); GLUCOSE 115 mg/dL (74-118); MAGNESIUM 1.6 MG/DL (1.3-2.1); POTASSIUM 3.6 mmol/L (3.5-5.1); SODIUM 132 mmol/L (136-145)
[2020-02-23] MEDS: MEROPENEM 1GM 100 ML IV SCH (05:37)
[2020-02-23] MEDS: SODIUM CHLORIDE 0.9% 1000ML 1,000 ML IV SCH ×2 (05:37→16:13)
--- NOTE | 2020-02-23 06:50 | NUR ---
REPORT GIVEN TO EDY ARELLANO, PT IN ROOM REMAIN ON TELEMETRY NO DISTRESS, CALL LIGHT WITHIN REACH
[2020-02-23] MEDS: INSULIN LISPRO 100 UNIT/1 ML 3ML VIAL SQ SCH ×4 (07:30→21:00)
[2020-02-23] MEDS: ZINC SULFATE 220 MG CAP PO SCH (09:00)
[2020-02-23] MEDS: ASPIRIN 81 MG ENTERIC COATED PO SCH (09:31)
[2020-02-23] MEDS: APIXABAN 5 MG TABLET PO SCH ×2 (09:32→16:13)
[2020-02-23] MEDS: SODIUM CHLORIDE 1 GM TAB PO SCH ×2 (09:32→16:13)
[2020-02-23] MEDS: CHOLECALCIFEROL 400 UNIT TAB PO SCH (09:32)
[2020-02-23] MEDS: ASCORBIC ACID 500 MG TAB PO SCH (09:32)
[2020-02-23] MEDS: CHLORPROMAZINE HCL INJ 25 MG/ML AMP IM PRN ×2 (11:46→19:55)
--- NOTE | 2020-02-23 16:19 | Progress Note ---
DATE: SUBJECTIVE: Mr. Sauceda is doing well. There are no new complaints. REVIEW OF SYSTEMS: Otherwise negative. PHYSICAL EXAMINATION: GENERAL: He is currently alert and oriented. Does not seem to be in acute distress. VITAL SIGNS: Stable, currently afebrile. HEENT: Not icteric. NECK: Supple. CHEST: Clear. HEART: S1 and S2. No S3, S4, or murmur. ABDOMEN: Soft. The patient had laparoscopic cholecystectomy. IMPRESSION: Status post cholecystectomy, can discontinue antibiotic, COVID-19, upper respiratory infection, stable. From Infectious Disease point of view, the patient could be discharged home. He needs to be in droplet isolation for 2 weeks. No need to repeat the PCR. Could be discharged home with diabetic control. initial presentation. MD FARIDA Mayorga/AYDEE /[id number]
[2020-02-23] MEDS: HYDROCODONE/APAP 5MG-325MG TAB PO PRN (19:56)
--- NOTE | 2020-02-23 20:43 | NUR ---
DURING MED PASS PT C/O RIGHT LOWER GROIN PAIN, ASSESSMENT COMPLETED, BLOODY DISCHARGE STRINGY BLOOD CLOT SEEN COMING OUT HIS PENID, MD CHOI NOTIFIED VIA TELEPHONE, UPDATED HIM ON FINDING, HE STATED, "IT COULD BE POSSIBLE INFECTION, OBTAIN UA AND START ON MACROBID 100MG PO BID". KNOWN ALLERGIES GIVEN TO MD VERBALLY, ORDER CARRIED OUT ORDERED
[2020-02-23] MEDS ORDERED: NITROFURANTOIN MACROCRYSTALS 100 MG CAP PO SCH (22:00)
[2020-02-24] VITALS (9 sets, daily range): BP systolic 108–137; BP diastolic 64–92
[2020-02-24] MEDS: HYDROMORPHONE 1MG/1ML INJ IV PRN (00:14)
[2020-02-24] MEDS ORDERED: BISACODYL 10 MG SUPP PR PRN (00:15)
[2020-02-24 02:48] LABS: BILIRUBIN,URINE SMALL (NEGATIVE); CLARITY,URINE SL CLOUDY (CLEAR); COLOR,URINE AMBER (YELLOW); KETONES,URINE >=160 (NEGATIVE); LEUKOCYTE ESTERASE ,URINE NEGATIVE (NEGATIVE); NITRITE,URINE NEGATIVE (NEGATIVE); PROTEIN,URINE DIPSTICK 2+ (NEGATIVE); URINE UROBILINOGEN 1 mg/dL (0.2 - 1)
[2020-02-24 02:53] LABS: BACTERIA,URINE FEW /HPF; EPITHELIAL CELLS,URINE FEW /LPF; RBC,URINE 21-50 /HPF (0-5)
[2020-02-24] MEDS: SODIUM CHLORIDE 0.9% 1000ML 1,000 ML IV SCH ×2 (03:09→11:33)
--- NOTE | 2020-02-24 07:12 | NUR ---
SHIFT REPORT GIVEN TO EDY SHERMAN, PT REMAINS ON DROPLET PRECAUTIONS, GIVEN UPDATE ON UA RESULTS FOR PATIENT AND BLOODY DISCHARGE, SHE WILL CONTINUE TO MONITOR, MACROBID PO TO START ON PER MD CHOI FOR POSS INFECTION
[2020-02-24] MEDS: ASPIRIN 81 MG ENTERIC COATED PO SCH (08:26)
[2020-02-24] MEDS: SODIUM CHLORIDE 1 GM TAB PO SCH ×2 (08:26→17:18)
[2020-02-24] MEDS: ZINC SULFATE 220 MG CAP PO SCH (08:26)
[2020-02-24] MEDS: APIXABAN 5 MG TABLET PO SCH ×2 (08:26→17:18)
[2020-02-24] MEDS: NITROFURANTOIN MACROCRYSTALS 100 MG CAP PO SCH ×3 (08:26→20:29)
[2020-02-24] MEDS: POLYETHYLENE GLYCOL 3350 17 GM PACK PO SCH (08:26)
[2020-02-24] MEDS: DOCUSATE SODIUM 100 MG CAP PO SCH ×2 (08:26→17:17)
[2020-02-24] MEDS: ASCORBIC ACID 500 MG TAB PO SCH (08:26)
[2020-02-24] MEDS: CHOLECALCIFEROL 400 UNIT TAB PO SCH (08:26)
[2020-02-24] MEDS: INSULIN LISPRO 100 UNIT/1 ML 3ML VIAL SQ SCH ×4 (08:27→20:17)
[2020-02-24] MEDS: CHLORPROMAZINE HCL INJ 25 MG/ML AMP IM PRN (10:08)
[2020-02-24] MEDS: HYDROCODONE/APAP 5MG-325MG TAB PO PRN (10:09)
--- NOTE | 2020-02-24 18:10 | Progress Note ---
DATE: SUBJECTIVE: Mr. Sauceda is doing well. However, he had hematuria yesterday, but currently he is lying in bed comfortably, has no complaints. PHYSICAL EXAMINATION: GENERAL: He is currently alert, oriented. VITAL SIGNS: Stable. Currently, afebrile. HEENT: Not icteric. NECK: Supple. CHEST: Clear. ABDOMEN: Soft. IMPRESSION: 1. Hematuria, clinically stable. 2. COVID-19, asymptomatic. Droplet isolation, could be discharged when clinically stable. MD FARIDA Mayorga/MODL /[id number]
--- NOTE | 2020-02-24 20:00 | NUR ---
Resumed care of patient. Patient awake and resting in bed on room air. Vital signs stable, no s/s of distress at this time. Bed locked and in lowest position, side rails up x3, alarm on, call light placed within reach. All safety measures in place. Will continue to monitor.
[2020-02-25] VITALS (11 sets, daily range): BP systolic 131–164; BP diastolic 65–88
[2020-02-25] MEDS: SODIUM CHLORIDE 0.9% 1000ML 1,000 ML IV SCH ×3 (04:36→18:22)
[2020-02-25 05:26] LABS: BASOPHILS % 0.4 % (0.0-1.0); EOSINOPHILS # (AUTO) 0.3 (0.0-0.4); EOSINOPHILS % 5.9 % (0.0-6.0); HEMATOCRIT 24.6 % (38.2-49.6); HEMOGLOBIN 8.2 g/dL (14.0-18.0); LYMPHOCYTES # (AUTO) 0.7 (1.0-3.2); LYMPHOCYTES % 14.2 % (18.0-39.1); MEAN CORPUSCULAR HEMOGLOBIN 29.4 pg (28-32); MEAN CORPUSCULAR HGB CONC 33.3 g/dL (31-35); MEAN CORPUSCULAR VOLUME 88.2 fL (81-99); MONOCYTES # (AUTO) 0.3 (0.2-0.8); MONOCYTES % 5.9 % (4.4-11.3); NEUTROPHILS # (AUTO) 3.7 (2.1-6.9); NEUTROPHILS % 72.8 % (38.7-80.0); PLATELET COUNT 267 x10e3/uL (140-360); RED BLOOD COUNT 2.79 x10e6/uL (4.3-5.7); RED CELL DISTRIBUTION WIDTH 16.1 % (11.7-14.4)
[2020-02-25 05:56] LABS: ALANINE AMINOTRANSFERASE 36 IU/L (0-55); ALBUMIN 1.9 g/dL (3.5-5.0); ALBUMIN/GLOBULIN RATIO 0.6 (0.8-2.0); ALKALINE PHOSPHATASE 68 IU/L (40-150); ANION GAP 11.5 mmol/L (8-16); BLOOD UREA NITROGEN 6 mg/dL (7-26); BUN/CREATININE RATIO 10 (6-25); CALCIUM 7.3 mg/dL (8.4-10.2); CARBON DIOXIDE 22 mmol/L (22-29); CHLORIDE 103 mmol/L (98-107); CREATININE, SERUM 0.62 mg/dL (0.72-1.25); EST GLOMERULAR FILTRATION RATE > 60 ML/MIN (60-); GLUCOSE 108 mg/dL (74-118); MAGNESIUM 1.6 MG/DL (1.3-2.1); POTASSIUM 3.5 mmol/L (3.5-5.1); SODIUM 133 mmol/L (136-145)
[2020-02-25] MEDS: INSULIN LISPRO 100 UNIT/1 ML 3ML VIAL SQ SCH ×4 (07:30→21:30)
--- NOTE | 2020-02-25 09:00 | NUR ---
C/O DISCOMFORT TO LEFT ARM POST IV INFILTRATION. NO S/S INFECTION NOTED. WILL WAIT TO SEE IF PT WANTS RESTART IV HE IS PLANNING TO GO HOME TODAY
[2020-02-25] MEDS: SODIUM CHLORIDE 1 GM TAB PO SCH ×2 (09:07→17:04)
[2020-02-25] MEDS: APIXABAN 5 MG TABLET PO SCH ×2 (09:07→17:04)
[2020-02-25] MEDS: CHOLECALCIFEROL 400 UNIT TAB PO SCH (09:07)
[2020-02-25] MEDS: DOCUSATE SODIUM 100 MG CAP PO SCH ×2 (09:07→17:04)
[2020-02-25] MEDS: ZINC SULFATE 220 MG CAP PO SCH (09:07)
[2020-02-25] MEDS: POLYETHYLENE GLYCOL 3350 17 GM PACK PO SCH (09:07)
[2020-02-25] MEDS: ASCORBIC ACID 500 MG TAB PO SCH (09:07)
[2020-02-25] MEDS: NITROFURANTOIN MACROCRYSTALS 100 MG CAP PO SCH ×2 (09:07→20:50)
[2020-02-25] MEDS: ASPIRIN 81 MG ENTERIC COATED PO SCH (09:07)
--- NOTE | 2020-02-25 13:30 | NUR ---
ASSISTED WITH AMBULATION TO THE BATHROOM. 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 HE WAS ABLE TO AMBULATE WITH ASSISTANCE FOR BALANCE
--- NOTE | 2020-02-25 15:03 | NUR ---
DURING ASSESSMENT NOTED THAT PATIENT HAS A LARGE BRUISE DEEP PURPLE TO RIGHT LOWER FLANK ARE ALONG WITH A DRESSING OVER A SKIN TEAR FROM PREVIOUS SURGICAL DRESSING. PATIENT DENIES ANY PAIN TO AREA AND AREA IS SOFT. WILL CONT TO MONITOR
--- NOTE | 2020-02-25 18:17 | NUR ---
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 rt arm still swollen with good pulses and no signs of infection. doesn't want anither iv at this time because he is planning for discharge Addendum: 02/25/20 at 1820 by TAMIKA OLIVARES RN LEFT ARM IS AFFECTED ARM, NOT RIGHT ARM
--- NOTE | 2020-02-25 20:00 | NUR ---
New 20G IV inserted to right AC. Patient tolerated well and restated on continuous IV fluids. See EMR for additional details.
[2020-02-26] VITALS (11 sets, daily range): BP systolic 126–147; BP diastolic 61–84
[2020-02-26] MEDS: SODIUM CHLORIDE 0.9% 1000ML 1,000 ML IV SCH ×2 (03:54→15:32)
[2020-02-26] MEDS: ACETAMINOPHEN 325 MG TAB PO PRN (04:00)
[2020-02-26] MEDS: INSULIN LISPRO 100 UNIT/1 ML 3ML VIAL SQ SCH ×4 (07:30→20:40)
[2020-02-26] MEDS: ASPIRIN 81 MG ENTERIC COATED PO SCH (08:50)
[2020-02-26] MEDS: CHOLECALCIFEROL 400 UNIT TAB PO SCH (08:50)
[2020-02-26] MEDS: NITROFURANTOIN MACROCRYSTALS 100 MG CAP PO SCH ×2 (08:50→21:40)
[2020-02-26] MEDS: APIXABAN 5 MG TABLET PO SCH ×2 (08:50→17:35)
[2020-02-26] MEDS: DOCUSATE SODIUM 100 MG CAP PO SCH ×2 (08:50→17:33)
[2020-02-26] MEDS: ASCORBIC ACID 500 MG TAB PO SCH (08:50)
[2020-02-26] MEDS: POLYETHYLENE GLYCOL 3350 17 GM PACK PO SCH (09:11)
[2020-02-26] MEDS: SODIUM CHLORIDE 1 GM TAB PO SCH ×2 (09:11→17:35)
[2020-02-26] MEDS: ZINC SULFATE 220 MG CAP PO SCH (09:11)
[2020-02-26] MEDS ORDERED: ONDANSETRON HCL 4 MG ORAL DISINTEGRATING TAB PO PRN (09:30)
--- NOTE | 2020-02-26 13:14 | Progress Note ---
DATE: SUBJECTIVE: The patient seen and evaluated. Discussed with the nurse. Available labs and notes reviewed. REVIEW OF SYSTEMS: Doing "okay." No nausea, vomiting, fever, chills, chest pain or shortness of breath. The patient remains on room air with a saturation of 99-100%. OBJECTIVE: VITAL SIGNS: Temperature 97.7, pulse 104, respirations 16, blood pressure 126/72. GENERAL: Alert and oriented, no acute distress. Weak. CV: S1 and S2. CHEST: Equal expansion. No acute distress. ABDOMEN: Soft, nontender. HEENT: Moist. No pallor. No JVD. EXTREMITIES: Weak. MEDICATIONS: Zinc sulfate, Eliquis, vitamin D, vitamin C. LABORATORY STUDIES: White count of 5.06, hemoglobin 8.2, platelet 267. Sodium 133, potassium 3.5, creatinine 0.62, AST 46. Coronavirus PCR detected on 02/14/2020. Microbiology: Blood culture 02/20/2020 and urine culture 02/14/2020 are negative. Radiology: No new radiology studies available. ASSESSMENT AND PLAN: 1. Coronavirus disease-19 pneumonia. 2. Superimposed bacterial pneumonia. 3. Status post laparoscopic cholecystectomy. 4. Hematuria. 5. Fever. 6. Hiccups, improved. 7. Fever, resolved. 8. Remains off antibiotic. Discharge planning in progress; however, patient does not have much help at home and he is severely weak. The patient to be seen by physical therapy and follow up with a recommendation for discharge. Continue to monitor the patient clinically and follow with the labs. Discussed with Dr. Cronin. Dictated by Saleem Glover PA-C (Al) Trinity Cronin MD /MODL /[id number]
--- NOTE | 2020-02-26 15:48 | NUR ---
Spoke with JACKELINE Lamar. States pt is very unsteady walking with walker. Would recommend home health if pt has assistance at home at all times. If not, then inpatient rehab. CM called and spoke with pt [phone] who stated his works all day and he does not have help at home. Pt is agreeable to inpatient rehab. CM informed Dr. Beard of PT's eval. He gave order for inpatient rehab. CM called pt again to offer choice. Pt asked that CM call his Kellie. CM called and discussed with Mrs. Sauceda. She states she is agreeable for her to go to inpatient rehab. Discussed different rehab hospitals. Gave choice for [facility] in [place]. CM called pt and informed him of discussion with his . Pt is agreeable to [facility] as well. Signed choice letter placed in front of chart. Referral faxed to [facility] at [phone]. Lorenza with [facility] was informed of referral.
--- NOTE | 2020-02-26 16:00 | NUR ---
PATIENT DECIDED TO GO TO [facility] INSTEAD OF D/C HOME R/T CURRENT WEAKNESS AND JUVENTINO NOT BE THERE DURING THE DAY TO HELP HIM AFTER THIS WEEKEND BECAUSE SHE WORKS. PAPERWORK AND MOT STARTED, AWAITING OKAY TO TRANSFER.
--- NOTE | 2020-02-26 16:13 | NUR ---
MOT initiated and given to EDY Walker. Gave [facility] nurses number to call MOT to.
--- NOTE | 2020-02-26 21:40 | NUR ---
PATIENT RESTING IN BED, NO SIGNS OF DISTRESS NOTED. O2 SAT IS AT 98% ON ROOM AIR, PATIENT VOICES NO SHORTNESS OF BREATH. IV FLUIDS ARE RUNNING AT ORDERED RATE AND PATIENT VOICES NO PAIN AT THIS TIME. BED IS IN LOWEST POSITION, BOTH SIDE RAILS ARE UP, CALL LIGHT IS WITHIN EASY REACH, WILL CONTINUE TO MONITOR.
[2020-02-27] VITALS (8 sets, daily range): BP systolic 122–168; BP diastolic 64–103
[2020-02-27] MEDS: SODIUM CHLORIDE 0.9% 1000ML 1,000 ML IV SCH ×2 (06:15→11:11)
[2020-02-27 06:47] LABS: BASOPHILS % 0.8 % (0.0-1.0); EOSINOPHILS # (AUTO) 0.3 (0.0-0.4); EOSINOPHILS % 6.3 % (0.0-6.0); HEMATOCRIT 27.9 % (38.2-49.6); HEMOGLOBIN 8.9 g/dL (14.0-18.0); LYMPHOCYTES # (AUTO) 0.8 (1.0-3.2); LYMPHOCYTES % 15.3 % (18.0-39.1); MEAN CORPUSCULAR HEMOGLOBIN 29.1 pg (28-32); MEAN CORPUSCULAR HGB CONC 31.9 g/dL (31-35); MEAN CORPUSCULAR VOLUME 91.2 fL (81-99); MONOCYTES # (AUTO) 0.4 (0.2-0.8); MONOCYTES % 7.6 % (4.4-11.3); NEUTROPHILS # (AUTO) 3.4 (2.1-6.9); NEUTROPHILS % 68.4 % (38.7-80.0); PLATELET COUNT 380 x10e3/uL (140-360); RED BLOOD COUNT 3.06 x10e6/uL (4.3-5.7); RED CELL DISTRIBUTION WIDTH 16.5 % (11.7-14.4)
[2020-02-27 07:16] LABS: ALANINE AMINOTRANSFERASE 39 IU/L (0-55); ALBUMIN 1.9 g/dL (3.5-5.0); ALBUMIN/GLOBULIN RATIO 0.6 (0.8-2.0); ALKALINE PHOSPHATASE 81 IU/L (40-150); BLOOD UREA NITROGEN < 5 mg/dL (7-26); CALCIUM 7.5 mg/dL (8.4-10.2); CARBON DIOXIDE 27 mmol/L (22-29); CHLORIDE 105 mmol/L (98-107); EST GLOMERULAR FILTRATION RATE > 60 ML/MIN (60-); GLUCOSE 143 mg/dL (74-118); MAGNESIUM 1.7 MG/DL (1.3-2.1); SODIUM 137 mmol/L (136-145)
[2020-02-27 07:17] LABS: BUN/CREATININE RATIO 8 (6-25)
--- NOTE | 2020-02-27 09:13 | NUR ---
LONG-TERM ACUTE CARE DISCHARGE INFORMATION PATIENT HAS BEEN ACCEPTED TO: [address] [place] [address] ACCEPTING SMOKE JUMPER SUPERVISOR: SOMMER BeanO ACCEPTING MD: Dr. Jared Morgan ROOM: will be assigned on report NURSE CALL REPORT TO: [phone] THE FOLLOWING DOCUMENTS MUST ACCOMPANY PATIENT FOR TRANSFER: copy of chart MOT INFO RECEIVED FROM: Lorenza HOBBS ORDER/RECONCILED MED LIST: to be obtained by bedside RN [id number] DNR: n/a MOT completed and given to EDY Rene. Addendum: 02/27/20 at 1012 by Angelika Strauss CM INPATIENT ACUTE REHABILITATION DISCHARGE INFORMATION, not [facility].
[2020-02-27] MEDS: ASCORBIC ACID 500 MG TAB PO SCH (10:10)
[2020-02-27] MEDS: SODIUM CHLORIDE 1 GM TAB PO SCH ×2 (10:10→16:56)
[2020-02-27] MEDS: POLYETHYLENE GLYCOL 3350 17 GM PACK PO SCH (10:10)
[2020-02-27] MEDS: NITROFURANTOIN MACROCRYSTALS 100 MG CAP PO SCH (10:10)
[2020-02-27] MEDS: ZINC SULFATE 220 MG CAP PO SCH (10:10)
[2020-02-27] MEDS: CHOLECALCIFEROL 400 UNIT TAB PO SCH (10:10)
[2020-02-27] MEDS: ASPIRIN 81 MG ENTERIC COATED PO SCH (10:11)
[2020-02-27] MEDS: DOCUSATE SODIUM 100 MG CAP PO SCH ×2 (10:11→16:56)
[2020-02-27] MEDS: APIXABAN 5 MG TABLET PO SCH ×2 (10:12→16:56)
--- NOTE | 2020-02-27 13:45 | NUR ---
Dr. Beard called, ordered for discharge. Telephone Physician Transfer Order witnessed by Erica SNOW.
--- NOTE | 2020-02-27 14:15 | NUR ---
Report called to Jolly SNOW at [phone]. Patient going to [facility], room 1138
[2020-02-27] MEDS: CHLORPROMAZINE HCL INJ 25 MG/ML AMP IM PRN (16:56)
--- NOTE | 2020-02-27 17:12 | Progress Note ---
DATE: SUBJECTIVE: Mr. Sauceda is still weak and they are planning for him to go to rehab. REVIEW OF SYSTEMS: Besides the weakness HEENT: Negative. PULMONARY: Negative. CARDIAC: Negative. PHYSICAL EXAMINATION: GENERAL: He is currently alert, oriented, does not seem in acute distress. VITAL SIGNS: Stable, afebrile. HEENT: He is not icteric. NECK: Supple. CHEST: Clear. HEART: S1 and S2. No S3, S4, or murmur. ABDOMEN: Soft. Bowel sounds present. EXTREMITIES: No edema. SKIN: No rash. IMPRESSION: From Infectious Disease point of view, the patient is doing well. Debility, hematuria probably urinary tract infection and diabetes mellitus. I would recommend the patient continue in total two weeks of droplet isolation. Could go to rehab. No need to check PCR. MD FARIDA Mayorga/AYDEE /[id number]
--- NOTE | 2020-02-28 05:29 | Discharge Summary ---
DISCHARGE DIAGNOSES: 1. Acute cholecystitis, status post laparoscopic cholecystectomy. 2. Coronavirus disease 2019 pneumonia. 3. History of atrial fibrillation. 4. Hypertension. 5. Diabetes. HISTORY OF PRESENT ILLNESS AND HOSPITAL COURSE: The patient is a gentleman, who presents with abdominal pain, was found to have acute cholecystitis as well as COVID pneumonia, so we brought him to the COVID Unit. He was seen by Dr. Pollack, who performed a lap shirley without complications. His main COVID symptom was significant hiccups, which did resolve by the time of his discharge. He was complicated by extreme weakness and fatigue to the point with therapy. They felt likely he was just too unsafe to go home. So, the patient was then elected to obtain a correction facility, which he was there accepted to and transferred to. Please see hospital chart for full details. MD JASMINA Barton/AYDEE /[id number]
== END 2020-02-27 19:38 | DRG 417 ==
LOC: ER 15:20 → ERHOLD 20:03 → MED/SURG 02-15 02:15 → IMCU 02-15 16:44 → OBSVTOIN 02-16 13:44
PROVIDERS: ADMIT Internal Medicine; ATTEND Internal Medicine
PROC: 8E0ZXY6 Isolation (ICD-10-PCS; principal; 2020-02-14)
PROC: 0FT44ZZ Resection of Gallbladder, Percutaneous Endoscopic Approach (ICD-10-PCS; 2020-02-18)
DX: K80.12 Calculus of gallbladder with acute and chronic cholecystitis without obstruction (principal); U07.1 COVID-19; J15.9 Unspecified bacterial pneumonia; E22.2 Syndrome of inappropriate secretion of antidiuretic hormone; N39.0 Urinary tract infection, site not specified; I10 Essential (primary) hypertension; E11.649 Type 2 diabetes mellitus with hypoglycemia without coma; I48.91 Unspecified atrial fibrillation; E78.5 Hyperlipidemia, unspecified; I25.10 Atherosclerotic heart disease of native coronary artery without angina pectoris; Z88.0 Allergy status to penicillin; Z88.8 Allergy status to other drugs, medicaments and biological substances; E16.2 Hypoglycemia, unspecified; R00.1 Bradycardia, unspecified; Z79.84 Long term (current) use of oral hypoglycemic drugs; Z95.5 Presence of coronary angioplasty implant and graft; Z79.01 Long term (current) use of anticoagulants; R31.9 Hematuria, unspecified; K82.8 Other specified diseases of gallbladder; D64.9 Anemia, unspecified; R53.81 Other malaise
CPT/HCPCS: 36415; 71045; 74177; 78227; 80048; 80053; 80061; 81001; 82550; 82553; 82948; 83036; 83690; 83735; 84443; 84484; 85025; 85610; 85730; 87040; 87086; 88304; 93005; 96360; 96361; 96372; 97139; 99284; A9537; G0378; J1170; J2370; J2405; J2765; J3010; J3230; J7030; J7070; J7799; Q0162; Q9967; U0002

== ENCOUNTER 2020-12-25 10:56 | Emergency (ER) | payer OTHER, MEDICARE ==
[~2020-12-25] VITALS: Ht 365.8 cm; Wt 78.0 kg
[~2020-12-25 10:56] MED LIST changes: +CALCIUM MAGNES1 EAC2 PO; +ELIQUIS5 MG PO; +FOLIC ACID PO; +METFORMIN HCL500 MG PO; +METOPROLOL SUCC25 MG PO; +PLAVIX75 MG PO; +[UNRECOGNIZED DRUG - OTHER] PO
== END 2020-12-25 16:20 | disposition home or self-care (01) ==
LOC: ER 12:02
DX: S61.412A Laceration without foreign body of left hand, initial encounter (principal); S51.012A Laceration without foreign body of left elbow, initial encounter; W01.0XXA Fall on same level from slipping, tripping and stumbling without subsequent striking against object, initial encounter; Y93.01 Activity, walking, marching and hiking; Y92.512 Supermarket, store or market as the place of occurrence of the external cause; I10 Essential (primary) hypertension; E11.9 Type 2 diabetes mellitus without complications; E78.5 Hyperlipidemia, unspecified; I48.91 Unspecified atrial fibrillation; I25.10 Atherosclerotic heart disease of native coronary artery without angina pectoris
CPT/HCPCS: 70450; 72125; 99284

== ENCOUNTER → 2021-02-04 | Outpatient (CLI) | payer MEDICARE, OTHER | LOC: US 10:26 | PROVIDERS: ATTEND Internal Medicine | DX: R94.6 Abnormal results of thyroid function studies (principal) | CPT/HCPCS: 76536 ==

== ENCOUNTER → 2021-02-10 | Outpatient (CLI) | payer MEDICARE, OTHER | LOC: NM 07:17 | PROVIDERS: ATTEND Internal Medicine | DX: R94.6 Abnormal results of thyroid function studies (principal) | CPT/HCPCS: 78014; A9516 ==

== ENCOUNTER 2025-03-01 12:49 | Inpatient (IN) | payer MEDICARE, OTHER ==
[2025-03-01] VITALS (7 sets, daily range): BP systolic 117–191; BP diastolic 52–67; PULSE 60–75; RESP 18–19; TEMP 97.3–98.3; O2SAT 100
[~2025-03-01] VITALS: Ht 182.9 cm; Wt 81.6 kg
[2025-03-01] MEDS ORDERED: SODIUM CHLORIDE FLUSH 10 ML SYR IV PRN (13:30)
[2025-03-01 13:48] LABS: BASOPHILS % 0.5 % (0.0-1.0); EOSINOPHILS % 1.2 % (0.0-6.0); LYMPHOCYTES % 21.4 % (18.0-39.1); MONOCYTES % 7.1 % (4.4-11.3); NEUTROPHILS % 69.1 % (38.7-80.0); RED CELL DISTRIBUTION WIDTH 16.0 % (11.7-14.4)
[2025-03-01 14:21] LABS: EST GLOMERULAR FILTRATION RATE 35.0 ML/MIN (>=60)
[2025-03-01] MEDS ORDERED: ONDANSETRON HCL INJ 2MG/ML 2ML 2 MG/ML VIAL IV PRN (15:00)
[2025-03-01] MEDS ORDERED: SODIUM CHLORIDE FLUSH 10 ML SYR INJ PRN (15:00)
[2025-03-01] MEDS ORDERED: FARXIGA5 MG PO (16:37)
[2025-03-01] MEDS ORDERED: NEURONTIN300 MG PO (16:37)
[2025-03-01] MEDS ORDERED: ROSUVASTATIN CA20 MG PO (16:37)
[2025-03-01] MEDS ORDERED: VALERIAN ROOT PO (16:37)
[2025-03-01] MEDS: CLONIDINE HCL 0.1 MG TAB PO PRN (17:21)
[2025-03-01] MEDS: SODIUM CHLORIDE 0.9% 1000ML 1,000 ML IV SCH (17:22)
[2025-03-01] MEDS: GLIMEPIRIDE 2 MG TAB PO SCH (17:22)
[2025-03-01 17:30] LABS: T3 UPTAKE 28.53 % (22.5-37.0)
[2025-03-01] MEDS: APIXABAN 5 MG TABLET PO ONE (22:31)
[2025-03-01] MEDS: METOPROLOL SUCCINATE 50 MG TAB XL PO SCH (22:40)
[2025-03-01] MEDS: GABAPENTIN 300 MG CAP PO SCH (22:40)
[2025-03-01] MEDS: CRESTOR 10MG PO SCH (22:40)
[2025-03-02] VITALS (8 sets, daily range): BP systolic 122–175; BP diastolic 59–72; PULSE 55–89; RESP 16–18; TEMP 97.1–97.9; O2SAT 97–100
[2025-03-02 05:03] LABS: BASOPHILS % 0.7 % (0.0-1.0); EOSINOPHILS % 1.7 % (0.0-6.0); LYMPHOCYTES % 24.5 % (18.0-39.1); MONOCYTES % 9.6 % (4.4-11.3); NEUTROPHILS % 62.4 % (38.7-80.0); RED CELL DISTRIBUTION WIDTH 16.3 % (11.7-14.4)
[2025-03-02 05:32] LABS: EST GLOMERULAR FILTRATION RATE 43.0 ML/MIN (>=60)
[2025-03-02] MEDS ORDERED: APIXABAN 5 MG TABLET PO SCH (06:00)
[2025-03-02] MEDS: APIXABAN 2.5 MG TABLET PO SCH (08:49)
[2025-03-03] VITALS (7 sets, daily range): BP systolic 118–165; BP diastolic 50–72; PULSE 56–68; RESP 16–18; TEMP 97.6–98; O2SAT 98–99
[2025-03-03 05:57] LABS: BASOPHILS % 0.5 % (0.0-1.0); EOSINOPHILS % 1.8 % (0.0-6.0); LYMPHOCYTES % 19.5 % (18.0-39.1); MONOCYTES % 10.2 % (4.4-11.3); NEUTROPHILS % 67.0 % (38.7-80.0); RED CELL DISTRIBUTION WIDTH 15.9 % (11.7-14.4)
[2025-03-03 06:38] LABS: EST GLOMERULAR FILTRATION RATE 43.0 ML/MIN (>=60)
[2025-03-04 08:23] VITALS: BP 142/65; PULSE 51; RESP 18; TEMP 97.9; O2SAT 99
[2025-03-04 08:30] VITALS: BP 142/65; PULSE 51; RESP 18; TEMP 97.9; O2SAT 99
[2025-03-04 11:27] VITALS: BP 166/67; PULSE 58; RESP 17; TEMP 98; O2SAT 99
== END 2025-03-04 12:30 | disposition home health service (06) | DRG 307 ==
LOC: ER 12:54 → ERHOLD 15:01 → MED/SURG 16:18 → OBSVTOIN 03-03 11:29
PROVIDERS: ADMIT Internal Medicine; ATTEND Internal Medicine
DX: I35.0 Nonrheumatic aortic (valve) stenosis (principal); R55 Syncope and collapse; E78.5 Hyperlipidemia, unspecified; I48.91 Unspecified atrial fibrillation; I25.10 Atherosclerotic heart disease of native coronary artery without angina pectoris; G62.9 Polyneuropathy, unspecified; I77.9 Disorder of arteries and arterioles, unspecified; R53.81 Other malaise; E86.0 Dehydration; E11.22 Type 2 diabetes mellitus with diabetic chronic kidney disease; I12.9 Hypertensive chronic kidney disease with stage 1 through stage 4 chronic kidney disease, or unspecified chronic kidney disease; N18.32 Chronic kidney disease, stage 3b; I27.20 Pulmonary hypertension, unspecified; Z79.01 Long term (current) use of anticoagulants; Z88.0 Allergy status to penicillin; Z95.5 Presence of coronary angioplasty implant and graft; Z88.8 Allergy status to other drugs, medicaments and biological substances; Z79.02 Long term (current) use of antithrombotics/antiplatelets
CPT/HCPCS: 36415; 71045; 80053; 82550; 82948; 83735; 83880; 84436; 84443; 84479; 84484; 85025; 93005; 93306; 93880; 94760; 94799; 99284; G0378; J7030